=== PATIENT | male | born 1930 | race Caucasian/White ===

== ENCOUNTER 2018-09-14 20:58 | Inpatient (IN) ==
--- NOTE | 2018-09-14 21:09 | ED ---
HPI General Chief Complaint: Fall Stated Complaint: Fall Time Seen by Provider: 09/14/18 21:05 Source: patient Mode of arrival: EMS Limitations: no limitations History of Present Illness HPI Narrative: 87-year-old male with PMH of COPD, hyperlipidemia, depression, oxygen dependent presents the ED via EMS for evaluation of right hip pain. Patient states he was attempting to get out of bed, had pain in the right hip and fell to the ground. He denies hitting his head or loss of consciousness. He has not been able to ambulate since the accident. He endorses 8/10 pain with any motion, pain is relieved by rest. He states pain is currently 2/10. He denies taking any blood thinners. He denies headache, dizziness, chest pain , palpitations, shortness of breath, abdominal pain, nausea, vomiting. He states he last ate around 4 PM. Related Data Home Medications Medication Instructions Recorded Confirmed alprazolam 0.5 mg PO TID 09/14/18 09/14/18 aspirin 81 mg PO DAILY 09/14/18 09/14/18 atorvastatin 10 mg PO DAILY 09/14/18 09/14/18 docusate sodium 100 mg PO BID 09/14/18 09/14/18 finasteride 5 mg PO DAILY 09/14/18 09/14/18 ipratropium-albuterol 3 ml INHALATION BID 09/14/18 09/14/18 moxifloxacin [Vigamox] 1 drp OPHTHALMIC (EYE) TID 09/14/18 09/14/18 polysaccharide iron complex 150 mg PO DAILY 09/14/18 09/14/18 [Ferrex 150] sertraline 50 mg PO HS 09/14/18 09/14/18 tamsulosin 0.4 mg PO BID 09/14/18 09/14/18 Allergies Allergy/AdvReac Type Severity Reaction Status Date / Time No Known Allergies Allergy Verified 06/08/18 14:57 Review of Systems ROS: all other systems reviewed are negative [facility] Medical History Medical History COPD (chronic obstructive pulmonary disease) (Acute) Social History Social History Substance History: No History of Abuse Second Hand Smoke Exposure: No Smoking Status: Never smoker Tobacco Type: Cigarettes How Often Do You Have a Drink Containing Alcohol: Never Recent Travel in [facility] within the Last 8 Weeks: No Recent Out of Country Travel within the Last 8 Weeks: No Exam Narrative Exam Narrative: GENERAL: Well-nourished, well-developed, hard of hearing white male in no acute distress. SKIN: Focused skin assessment warm/dry. HEAD: Atraumatic. Normocephalic. EYES: Pupils equal and round. No scleral icterus. No injection or drainage. ENT: No nasal bleeding or discharge. Mucous membranes pink and moist. NECK: Trachea midline. No JVD. CARDIOVASCULAR: Regular rate and rhythm. No murmur appreciated. RESPIRATORY: No accessory muscle use. Clear to auscultation. Breath sounds equal bilaterally. GASTROINTESTINAL: Abdomen soft, non-tender, nondistended. Hepatic and splenic margins not palpable. MUSCULOSKELETAL: No obvious deformities. No clubbing. No cyanosis. No edema. FOCUSED RIGHT LOWER EXTREMITY EXAM: 2+ DP pulse. Patient is able to wiggle the toes, neurovascular intact distally. The leg is externally rotated and slightly shortened as compared to the contralateral leg. No tenderness to palpation of the anterior lateral hip. Pain elicited with attempted internal and external rotation. NEUROLOGICAL: Awake and alert. No obvious cranial nerve deficits. Motor grossly within normal limits. Normal speech. PSYCHIATRIC: Appropriate mood and affect; insight and judgment normal. Course Initial Documented Vital Signs Temperature 97.8 F 09/14/18 21:10 Pulse Rate 99 H 09/14/18 21:10 Respiratory Rate 18 09/14/18 21:10 Blood Pressure 192/84 H 09/14/18 21:10 Pulse Oximetry 96 09/14/18 21:10 Last Documented Vital Signs Temperature 97.8 F 09/14/18 21:10 Pulse Rate 99 H 09/14/18 21:10 Respiratory Rate 18 09/14/18 21:10 Blood Pressure 192/84 H 09/14/18 21:10 Pulse Oximetry 96 09/14/18 21:10 Medical Decision Making [facility] Narrative Medical decision making narrative: 87-year-old male with history of COPD, oxygen dependent presents the ED for evaluation of right hip pain. Patient states he was attempting to get out of bed, felt pain in the right hip and fell to the ground. Denies hitting his head or loss of consciousness. Does not take blood thinners. On exam the affected extremity is externally rotated and mildly foreshortened. He is neurovascularly intact distally. X-ray reveals intertrochanteric fracture. Preoperative lab work and radiological studies ordered and pending. I discussed the results of the workup with the patient as well as the recommendation for admission. He is agreeable. Orthopedic consult placed. I spoke with Dr. Green who agrees to accept the patient to the medicine service. Please see medicine and orthopedic notes for disposition. Medical Screen Exam Complete: Yes Emergency Medical Condition: Yes Differential Diagnosis Differential Diagnosis: Fall from standing versus hip fracture versus dislocation versus pelvic fracture versus other Imaging Data Radiologist's impression: Hip X-Ray 09/14/18 21:05 CONCLUSION: Acute minimally displaced intertrochanteric fracture of the right femur. Discharge Plan Discharge Disposition Patient Disposition: 30 Still Patient Physicians Team ED Provider: Melinda Todd ED Midlevel Provider: Rosalba Gu Primary Care Provider: UNKNOWN, Attending Provider: Marcio Green Other Providers: Yonatan Boyd Status ED Status: Admitted Patient
[2018-09-14] MEDS ORDERED: Morphine Inj 4 MG/ML Vial IV.PUSH ONE (21:42)
--- NOTE | 2018-09-14 21:43 | XR ---
EXAM DATE: 09/14/2018 9:39 PM EST AGE/SEX: 87 years / Male INDICATIONS: Right hip pain after fall. CLINICAL DATA: This is the patient's initial encounter. Patient reports that signs and symptoms have been present for 1 day and indicates a pain score of 10/10. MEDICAL/SURGICAL HISTORY: None. . Left hip ORIF. COMPARISON: No prior exams available for comparison. FINDINGS: There is a minimally displaced intertrochanteric fracture of the right femur. Bony pelvis is intact and has normal morphology. There is a healed intertrochanteric fracture of the left femur status post nail and basilio fixation. Ali gnment is near-anatomic. CONCLUSION: Acute minimally displaced intertrochanteric fracture of the right femur. Electronically signed by: Panfilo Jacome MD 09/14/2018 9:41 PM EST
[2018-09-14] MEDS ORDERED: Morphine Sulfate Inj 2 MG/ML Vial IV.PUSH ONE (21:44)
--- NOTE | 2018-09-14 22:08 | XR ---
EXAM DATE: 09/14/2018 10:01 PM EST AGE/SEX: 87 years / Male INDICATIONS: Evaluate for pneumonia, pneumothorax, or communicable disease. Pre op hip surgery. CLINICAL DATA: This is the patient's initial encounter. Patient reports that signs and symptoms have been present for 1 day and indicates a pain score of 0/10. MEDICAL/SURGICAL HISTORY: None. None. COMPARISON: [facility] [place], CHEST 1V SINGLE AP, 06/08/2018. . FINDINGS: Emphysema and chronic interstitial changes are again noted, generally similar to the prior study. No pleural effusion demonstrated. No pneumothorax. Heart size stable, upper limits of normal. Tortuous and atherosclerotic aorta again seen. CONCLUSION: Chronic emphysema and interstitial changes/scarring. No definite acute pneumonia. Electronically signed by: Panfilo Jacome MD 09/14/2018 10:07 PM EST
[2018-09-14] MEDS ORDERED: Bisacodyl 10 MG Supp RECTAL PRN (22:30)
[2018-09-14] MEDS: Sod Chloride 0.9% Inj 1,000 ML IV.CONT SCH (22:55)
[2018-09-14 23:05] LABS: Baso # (Auto) 0.1 th/mm3 (0.0-0.2); Baso % (Auto) 0.9 % (0.0-2.0); Eos % (Auto) 0.5 % (0.0-4.0); Hematocrit 32.9 % (39.0-51.0); Hemoglobin 10.8 gm/dL (13.0-17.0); Lymph # (Auto) 1.4 th/mm3 (1.0-4.8); Lymph % (Auto) 16.3 % (9.0-44.0); Mean Corpuscular HGB Conc 32.8 % (32.0-36.0); Mean Corpuscular Hemoglobin 32.4 pg (27.0-34.0); Mean Corpuscular Volume 98.5 fL (80.0-100.0); Mean Platelet Volume 8.8 fL (7.0-11.0); Mono # (Auto) 0.5 th/mm3 (0.0-0.9); Mono % (Auto) 5.3 % (0.0-8.0); Neut # (Auto) 6.7 th/mm3 (1.8-7.7); Platelet Count 112 th/mm3 (150-450); Red Blood Count 3.33 mil/mm3 (4.50-5.90); Red Cell Distribution Width 20.5 % (11.6-17.2); White Blood Count 8.6 th/mm3 (4.0-11.0)
[2018-09-14 23:14] LABS: Activated Partial Thrombo Time 25.2 sec (23.4-31.7); INR 1.1 Ratio
[2018-09-14 23:26] LABS: Albumin 3.1 g/dL (3.4-5.0); Anion Gap 4 meq/L (5-15); Aspartate Aminotransferase 13 U/L (15-37); Blood Urea Nitrogen 19 mg/dL (7-18); Calcium 8.2 mg/dL (8.5-10.1); Carbon Dioxide 30.8 meq/L (21.0-32.0); Chloride 102 meq/L (98-107); Glomerular Filtration Rate 87 mL/min (>89); Glucose,Random 139 mg/dL (74-106); Potassium 4.5 meq/L (3.5-5.1); Sodium 137 meq/L (136-145)
[2018-09-14 23:27] LABS: Alanine Aminotransferase 21 U/L (12-78)
[2018-09-14 23:29] LABS: Alkaline Phosphatase 106 U/L (45-117); Total Protein 6.5 g/dL (6.4-8.2)
[2018-09-14 23:35] LABS: Acanthocytes Occ; Ovalocytes 1+; Platelet Morphology Normal (Normal)
--- NOTE | 2018-09-15 05:47 | P.HPIM ---
History of Present Illness Primary Care Physician: UNKNOWN History of Present Illness: 87-year-old male with a history of COPD on oxygen, BPH, hyperlipidemia, chronic anemia, history of left hip fracture who presents the evening of 09/14 with with acute right hip fracture seen on x-ray. Patient says that he stood up from his bed, experienced severe pain in his right hip and fell to the floor. Denies any head trauma or loss of consciousness. He subsequently has severe constant sharp nonradiating pain right hip worse with movement. Says he otherwise is feeling all right. Denies any chest pain or change in shortness of breath from baseline. Patient denies any history of chest pain with exertion. Inpatient Certification: I certify that the inpatient services were ordered in accordance with Medicare regulations governing the order. This includes certification that hospital inpatient services are reasonable and necessary and in the case of services not specified as inpatient-only under 42 CFR 419.22(n), that they are appropriately provided as inpatient services in accordance to with the 2-midnight benchmark under 43 CFR 412.3(e) Review of Systems All other systems reviewed negative except as stated in HPI PMFSH - History History Provided By: Patient - Medical History Medical History: Medical History (Last Updated 09/15/18 @ 05:43 by Marcio Green MD) COPD (chronic obstructive pulmonary disease) Fracture of left hip requiring operative repair - Family History Family History: Family History (Last Updated 09/15/18 @ 05:43 by Marcio Green MD) Father Stroke Mother Stroke - Tobacco History Second Hand Smoke Exposure: No Smoking Status: Never smoker Tobacco Type: Cigarettes - Alcohol History How Often Do You Have a Drink Containing Alcohol: Never - Substance Use History Substance History: No History of Abuse - Travel History Recent Travel in the [place] Within the Last 8 Weeks: No Recent Travel Out of the Country Within the Last 8 Weeks: No - Immunization History Tetanus Immunization: Unsure Hx Influenza Vaccine This Season: No Medications and Allergies Active Medications: Active Medications Al Hydroxide/Mg Hydroxide (Milk Of Gomez Bal[place]) 30 ml PO Q12H PRN PRN Reason: Mild Constipation Albuterol (Duoneb Neb (Jayme)) 1 ampul INH BID NEB JAYME Alprazolam (Xanax) 0.5 mg PO TID JAYME Aspirin (Aspirin Chew) 81 mg PO DAILY JAYME Atorvastatin Calcium (Lipitor) 10 mg PO DAILY JAYME Bisacodyl (Dulcolax Supp) 10 mg RECTAL DAILY PRN PRN Reason: SEVERE CONSITIPATION Docusate Sodium (Colace) 100 mg PO BID [facility] Finasteride (Proscar) 5 mg PO DAILY [facility] Sodium Chloride (Ns Inj) 1,000 mls @ 45 mls/hr IV.CONT .[id number] [facility] Last Admin: 09/14/18 22:55 Dose: 45 mls/hr Lactulose (Lactulose Liq) 30 ml PO DAILY PRN PRN Reason: SEVERE CONSITIPATION Moxifloxacin HCl (Vigamox 0.5% Opth Drops) 1 drop EACH EYE TID [facility] Sennosides (Senokot) 17.2 mg PO Q12H PRN PRN Reason: Moderate Constipation Sertraline HCl (Zoloft) 50 mg PO HS [facility] Sodium Chloride (Ns Flush) 2 ml IV.FLUSH UNSCH PRN PRN Reason: FLUSH AFTER USING IV ACCESS Tamsulosin HCl (Flomax) 0.4 mg PO BID [facility] Allergies Allergy/AdvReac Type Severity Reaction Status Date / Time No Known Allergies Allergy Verified 06/08/18 14:57 Home Medications Medication Instructions Recorded Confirmed Type alprazolam 0.5 mg PO TID 09/14/18 09/14/18 History aspirin 81 mg PO DAILY 09/14/18 09/14/18 History atorvastatin 10 mg PO DAILY 09/14/18 09/14/18 History docusate sodium 100 mg PO BID 09/14/18 09/14/18 History finasteride 5 mg PO DAILY 09/14/18 09/14/18 History ipratropium-albuterol 3 ml INHALATION BID 09/14/18 09/14/18 History moxifloxacin [Vigamox] 1 drp OPHTHALMIC (EYE) TID 09/14/18 09/14/18 History polysaccharide iron complex 150 mg PO DAILY 09/14/18 09/14/18 History [Ferrex 150] sertraline 50 mg PO HS 09/14/18 09/14/18 History tamsulosin 0.4 mg PO BID 09/14/18 09/14/18 History Exam Vital signs: Vital Signs 09/14/18 21:10 Temperature 97.8 F Pulse Rate 99 H Respiratory Rate 18 Blood Pressure 192/84 H Pulse Oximetry 96 Intake & Output 09/14/18 09/14/1809/15/18 06:59 18:59 06:59 Weight 77.111 kg Other: Date of Last Bowel Movement 09/14/18 Weight On Admission 77.1 kg Narrative: GENERAL: Patient sitting up in bed. Appears comfortable. SKIN: Warm and dry. HEAD: Atraumatic. Normocephalic. EYES: Pupils equal and round. No scleral icterus. No injection or drainage. ENT: No nasal bleeding or discharge. Mucous membranes pink and moist. NECK: Trachea midline. No JVD. CARDIOVASCULAR: Regular rate and rhythm. RESPIRATORY: No accessory muscle use. Clear to auscultation. Breath sounds equal bilaterally. On 2 L oxygen nasal cannula. GASTROINTESTINAL: Abdomen soft, non-tender, nondistended. Hepatic and splenic margins not palpable. MUSCULOSKELETAL: Extremities without clubbing, cyanosis, or edema. No obvious deformities. Extreme pain with movement of right hip NEUROLOGICAL: Awake and alert. No obvious cranial nerve deficits. Motor grossly within normal limits. Five out of 5 muscle strength in the arms..Normal speech. PSYCHIATRIC: Appropriate mood and affect; insight and judgment normal. Results - Labs CBC & Chem 7: 09/14/18 22:55 09/14/18 22:55 Labs: Short CBC 09/14/18 Range/Units 22:55 WBC 8.6 (4.0-11.0) th/mm3 Hgb 10.8 L (13.0-17.0) gm/dL Hct 32.9 L (39.0-51.0) % Plt Count 112 L (150-450) th/mm3 BMP 09/14/18 22:55 Sodium 137 Potassium 4.5 Chloride 102 Carbon Dioxide 30.8 BUN 19 H Creatinine 0.83 Calcium 8.2 L Liver Function 09/14/18 Range/Units 22:55 Total Bilirubin 0.4 (0.2-1.0) mg/dL AST 13 L (15-37) U/L ALT 21 (12-78) U/L Alkaline Phosphatase 106 (45-117) U/L Albumin 3.1 L (3.4-5.0) g/dL - Imaging Impressions Hip X-Ray 09/14/18 21:05 CONCLUSION: Acute minimally displaced intertrochanteric fracture of the right femur. Chest X-Ray 09/14/18 21:42 CONCLUSION: Chronic emphysema and interstitial changes/scarring. No definite acute pneumonia. Caprini VTE Risk Assessment Caprini VTE Risk Assessment: Moderate/High Risk (score >= 2) Caprini Risk Assessment Model: Point Value = 1 Point Value = 2 Point Value = 3 Point Value = 5 Age 41-60 Minor surgery BMI > 25 kg/m2 Swollen legs Varicose veins or History of unexplained or recurrent spontaneous Oral contraceptives or hormone replacement Sepsis (< 1 month) Serious lung disease, including pneumonia (< 1 month) Abnormal pulmonary function Acute myocardial infarction Congestive heart failure (< 1 month) History of inflammatory bowel disease Medical patient at bed rest Age 61-74 Arthroscopic surgery Major open surgery (> 45 min) Laparoscopic surgery (> 45 min) Malignancy Confined to bed (> 72 hours) Immobilizing plaster cast Central venous access Age >= 75 History of VTE Family history of VTE Factor V Leiden Prothrombin [id number] Lupus anticoagulant Anticardiolipin antibodies Elevated serum homocysteine Heparin-induced thrombocytopenia Other congenital or acquired thrombophilia Stroke (< 1 month) Elective arthroplasty Hip, pelvis, or leg fracture Acute spinal cord injury (< 1 month) Prophylaxis Regimen: Total Risk Factor Score Risk Level Prophylaxis Regimen 0-1 Low Early ambulation 2 Moderate Order ONE of the following: *Sequential Compression Device (SCD) *Heparin 5000 units SQ BID 3-4 Higher Order ONE of the following medications: *Heparin 5000 units SQ TID *Enoxaparin/Lovenox 40 mg SQ daily (WT < 150 kg, CrCl > 30 mL/min) *Enoxaparin/Lovenox 30 mg SQ daily (WT < 150 kg, CrCl > 10-29 mL/min) *Enoxaparin/Lovenox 30 mg SQ BID (WT < 150 kg, CrCl > 30 mL/min) AND/OR *Sequential Compression Device (SCD) 5 or more Highest Order ONE of the following medications: *Heparin 5000 units SQ TID (Preferred with Epidurals) *Enoxaparin/Lovenox 40 mg SQ daily (WT < 150 kg, CrCl > 30 mL/min) *Enoxaparin/Lovenox 30 mg SQ daily (WT < 150 kg, CrCl > 10-29 mL/min) *Enoxaparin/Lovenox 30 mg SQ BID (WT < 150 kg, CrCl > 30 mL/min) AND *Sequential Compression Device (SCD) Assessment and Plan - Plan //Acute right hip fracture. Confirmed on imaging. Orthopedic consulted. N.p.o. for procedure. //COPD. Chronic. Continue oxygen via nasal cannula. Continue nebulizations. Monitor. //BPH. Chronic. Continue home medication Hyperlipidemia. Chronic. Continue home medication. Discussed Condition With: Patient, nurse, ED physician. H&P: Quality - VTE Deep Vein Thrombosis/Pulmonary Embolism Present on Admission: No
[2018-09-15] MEDS ORDERED: Chlorhexidine Gluconate 2% 1 Pack (2 Cloths) TOPICAL ONE (06:19)
[2018-09-15] MEDS ORDERED: Sodium Chlor 0.9% Inj 500 ML IV.SIG SCH (07:00)
--- NOTE | 2018-09-15 07:53 | ECG ---
Date Performed: 09/15/2018 Time Performed: 06:54:37 PTAGE: 87 years EKG: Baseline artifact present Either atrial fibrillation with controlled response or Sinus rhyt hm with premature atrial contractions. ABNORMAL RHYTHM ECG NO PREVIOUS TRACING DOCTOR: Kaden Salinas Interpretating Date/Time 09/15/2018 07:51:56
[2018-09-15] MEDS: Finasteride 5 MG Tablet PO SCH (08:03)
[2018-09-15] MEDS: ALPRAZolam 0.25 MG Tablet PO SCH ×3 (08:04→17:11)
[2018-09-15] MEDS ORDERED: Morphine Sulfate Inj 2 MG/ML Vial IV.PUSH PRN (09:06)
--- NOTE | 2018-09-15 09:08 | P.PNOP ---
Subjective Interval history: Slip and fall at assisted living home with complaints to right hip pain. No other orthopedic complaints Physical Exam Vital signs: Vital Signs 09/14/18 21:10 09/15/18 04:00 09/15/18 08:00 Temperature 97.8 F 97.8 F 97.2 F L Pulse Rate 99 H 92 H 80 Respiratory Rate 18 17 19 Blood Pressure 192/84 H 161/82 H Pulse Oximetry 96 96 95 09/15/18 08:54 Temperature Pulse Rate 91 H Respiratory Rate 18 Blood Pressure Pulse Oximetry 96 Intake & Output 09/14/18 09/15/18 09/15/18 18:59 06:59 18:59 Output Total 1125 / 1125 Balance -1125 / -1125 Weight 75.9 kg Output: Urine Amount (Catheter) 1124 Indwelling Urethral Catheter 1124 Other: Date of Last Bowel Movement 09/14/18 Weight On Admission 77.1 kg Narrative: Bilateral upper extremities: Full range of motion neurovascularly intact Left lower extremity: Full range of motion and neurovascularly intact Right lower extremity: Pain to palpation of hip. Skin is intact. Moderate bruising. No pain with knee or ankle passive range of motion. He has intact sensation distally with good capillary refills. He has active dorsiflexion and plantar flexion of foot. Intact distal pulses and good capillary refill - Urinary Catheter Management Indwelling Urethral Catheter Cath placed during this visit: yes Reason for continuing: Other continuation reason Insertion date: 09/14/18 Insertion time: 23:05 Results - Labs CBC & Chem 7: 09/14/18 22:55 09/14/18 22:55 Laboratory Results - last 24 hr 09/14/18 09/14/18 09/14/18 22:55 22:55 22:55 WBC 8.6 RBC 3.33 L Hgb 10.8 L Hct 32.9 L MCV 98.5 MCH 32.4 MCHC 32.8 RDW 20.5 H Plt Count 112 L MPV 8.8 Prelim Diff (Auto) Slide review pending Neut % (Auto) 77.0 H Lymph % (Auto) 16.3 [place] % (Auto) 5.3 Eos % (Auto) 0.5 Baso % (Auto) 0.9 Neut # (Auto) 6.7 Lymph # (Auto) 1.4 [place] # (Auto) 0.5 Eos # (Auto) 0.0 Baso # (Auto) 0.1 WBC Differential . Diff Scan Auto diff confirmed Differential Comment . Platelet Estimate Low L Platelet Morphology Normal Ovalocytes 1+ H Acanthocytes (Spur) Occ H Keratocytes Occ H PT 11.0 INR 1.1 APTT 25.2 Sodium 137 Potassium 4.5 Chloride 102 Carbon Dioxide 30.8 Anion Gap 4 L BUN 19 H Creatinine 0.83 Estimated GFR 87 L Random Glucose 139 H Calcium 8.2 L Total Bilirubin 0.4 AST 13 L ALT 21 Alkaline Phosphatase 106 Total Protein 6.5 Albumin 3.1 L Blood Type Blood Type Recheck Antibody Screen Antibody Identification MTS Gel Crossmatch Bld Prod Order Comment 09/14/18 09/14/18 23:00 23:00 WBC RBC Hgb Hct MCV MCH MCHC RDW Plt Count MPV Prelim Diff (Auto) Neut % (Auto) Lymph % (Auto) [place] % (Auto) Eos % (Auto) Baso % (Auto) Neut # (Auto) Lymph # (Auto) [place] # (Auto) Eos # (Auto) Baso # (Auto) WBC Differential Diff Scan Differential Comment Platelet Estimate Platelet Morphology Ovalocytes Acanthocytes (Spur) Keratocytes PT INR APTT Sodium Potassium Chloride Carbon Dioxide Anion Gap BUN Creatinine Estimated GFR Random Glucose Calcium Total Bilirubin AST ALT Alkaline Phosphatase Total Protein Albumin Blood Type O Positive Blood Type Recheck Required Antibody Screen Positive H Antibody Identification Non-Specific Agglutinin MTS Gel Crossmatch See Detail Bld Prod Order Comment - Imaging Impressions Hip X-Ray 09/14/18 21:05 CONCLUSION: Acute minimally displaced intertrochanteric fracture of the right femur. Chest X-Ray 09/14/18 21:42 CONCLUSION: Chronic emphysema and interstitial changes/scarring. No definite acute pneumonia. Assessment and Plan - Assessment and Plan Right intertrochanteric femur fracture N.p.o. Due to instability of fracture surgery is necessary for fixation. We will plan on surgery today for intramedullary basilio fixation of the right intertrochanteric femur fracture Sign consents as written
--- NOTE | 2018-09-15 09:11 | P.PN ---
Subjective Interval history: This is a pleasant 87 y/o male with COPD on Oxygen, BPH, Hyperlipidemia, Chronic anemia, History of left hip fracture who was brought in to Emergency room, status post fall with secondary Right hip fracture , has history of left hip fracture, scheduled now for right Hip arthroplasty. 09/15: Stable no nausea,vomit or diarrhea, asking for pain medicine to continue Morphine, at this time will go for surgery. Physical Exam Vital signs: Vital Signs 09/14/18 21:10 09/15/18 04:00 09/15/18 08:00 Temperature 97.8 F 97.8 F 97.2 F L Pulse Rate 99 H 92 H 80 Respiratory Rate 18 17 19 Blood Pressure 192/84 H 161/82 H Pulse Oximetry 96 96 95 09/15/18 08:54 Temperature Pulse Rate 91 H Respiratory Rate 18 Blood Pressure Pulse Oximetry 96 Intake & Output 09/14/18 09/15/18 09/15/18 18:59 06:59 18:59 Output Total 1125 / 1125 Balance -1125 / -1125 Weight 75.9 kg Output: Urine Amount (Catheter) 1125 / 1125 Indwelling Urethral Catheter 1125 / 1125 Other: Date of Last Bowel Movement 09/14/18 Weight On Admission 77.1 kg Narrative: GENERAL: Patient sitting up in bed. Appears comfortable. SKIN: Warm and dry. HEAD: Atraumatic. Normocephalic. EYES: Pupils equal and round. No scleral icterus. No injection or drainage. ENT: No nasal bleeding or discharge. Mucous membranes pink and moist. NECK: Trachea midline. No JVD. CARDIOVASCULAR: Regular rate and rhythm. RESPIRATORY: No accessory muscle use. Clear to auscultation. Breath sounds equal bilaterally. On 2 L oxygen nasal cannula. GASTROINTESTINAL: Abdomen soft, non-tender, nondistended. Hepatic and splenic margins not palpable. MUSCULOSKELETAL: Extremities without clubbing, cyanosis, or edema. No obvious deformities. Extreme pain with movement of right hip NEUROLOGICAL: Awake and alert. No obvious cranial nerve deficits. Motor grossly within normal limits. Five out of 5 muscle strength in the arms..Normal speech. PSYCHIATRIC: Appropriate mood and affect; insight and judgment normal. - Urinary Catheter Management Indwelling Urethral Catheter Cath placed during this visit: yes Reason for continuing: Other continuation reason Insertion date: 09/14/18 Insertion time: 23:05 Results - Labs CBC & Chem 7: 09/14/18 22:55 09/14/18 22:55 Laboratory Results - last 24 hr 09/14/18 09/14/18 09/14/18 22:55 22:55 22:55 WBC 8.6 RBC 3.33 L Hgb 10.8 L Hct 32.9 L MCV 98.5 MCH 32.4 MCHC 32.8 RDW 20.5 H Plt Count 112 L MPV 8.8 Prelim Diff (Auto) Slide review pending Neut % (Auto) 77.0 H Lymph % (Auto) 16.3 [place] % (Auto) 5.3 Eos % (Auto) 0.5 Baso % (Auto) 0.9 Neut # (Auto) 6.7 Lymph # (Auto) 1.4 [place] # (Auto) 0.5 Eos # (Auto) 0.0 Baso # (Auto) 0.1 WBC Differential . Diff Scan Auto diff confirmed Differential Comment . Platelet Estimate Low L Platelet Morphology Normal Ovalocytes 1+ H Acanthocytes (Spur) Occ H Keratocytes Occ H PT 11.0 INR 1.1 APTT 25.2 Sodium 137 Potassium 4.5 Chloride 102 Carbon Dioxide 30.8 Anion Gap 4 L BUN 19 H Creatinine 0.83 Estimated GFR 87 L Random Glucose 139 H Calcium 8.2 L Total Bilirubin 0.4 AST 13 L ALT 21 Alkaline Phosphatase 106 Total Protein 6.5 Albumin 3.1 L Blood Type Blood Type Recheck Antibody Screen Antibody Identification MTS Gel Crossmatch Bld Prod Order Comment 09/14/18 09/14/18 23:00 23:00 WBC RBC Hgb Hct MCV MCH MCHC RDW Plt Count MPV Prelim Diff (Auto) Neut % (Auto) Lymph % (Auto) [place] % (Auto) Eos % (Auto) Baso % (Auto) Neut # (Auto) Lymph # (Auto) [place] # (Auto) Eos # (Auto) Baso # (Auto) WBC Differential Diff Scan Differential Comment Platelet Estimate Platelet Morphology Ovalocytes Acanthocytes (Spur) Keratocytes PT INR APTT Sodium Potassium Chloride Carbon Dioxide Anion Gap BUN Creatinine Estimated GFR Random Glucose Calcium Total Bilirubin AST ALT Alkaline Phosphatase Total Protein Albumin Blood Type O Positive Blood Type Recheck Required Antibody Screen Positive H Antibody Identification Non-Specific Agglutinin MTS Gel Crossmatch See Detail Bld Prod Order Comment - Imaging Impressions Hip X-Ray 09/14/18 21:05 CONCLUSION: Acute minimally displaced intertrochanteric fracture of the right femur. Chest X-Ray 09/14/18 21:42 CONCLUSION: Chronic emphysema and interstitial changes/scarring. No definite acute pneumonia. - Procedures None Assessment and Plan - Plan //Acute right hip fracture. With Diagnosis of Right intertrochanteric femur fracture, seen by Orthopedic usability specialist and recommended due to instability of the fracture is necessary surgical management for fixation, will need intramedullary basilio fixation //COPD. Chronic. Continue oxygen via nasal cannula. Continue nebulizations. Monitor. //BPH. Chronic. Continue home medication //Hyperlipidemia. Chronic. Continue home medication. DVT prophylaxis as per Orthopedic Surgery. Code Status: Full code. Discussed Condition With: Patient and Nurse Miss Ham Discharge Planning: Once cleared by orthopedic surgery.
[2018-09-15] MEDS: Moxifloxacin 0.5% Opth Drops 3 ML Bottle EACH EYE SCH ×3 (10:04→17:23)
[2018-09-15] MEDS: Docusate Sodium 100 MG Capsule PO SCH ×2 (10:04→21:00)
[2018-09-15] MEDS ORDERED: ceFAZolin 2 GM Premix Inj 2 GM/50 ML PIGGYBACK IV.SIG ONE (10:33)
[2018-09-15] MEDS ORDERED: Bupivacaine/Epinephrine 0.5% Inj 50 ML Vial ONE (10:33)
[2018-09-15] MEDS ORDERED: Lidocaine PF 1% Inj 5 ML Syringe OTHER ONE (11:03)
[2018-09-15] MEDS ORDERED: Post-op Orders (for Pharmacy) OTHER STA (11:53)
--- NOTE | 2018-09-15 12:03 | P.OP ---
- Preoperative Diagnosis (1) Closed intertrochanteric fracture of right femur Date of procedure: 09/15/18 Procedure: Right hip reduction and intra medullary basilio fixation Anesthesia: GETPernell Surgeon: Yonatan Boyd MD Cover Cutter Machine: SHAYAN Hanna PA-C The surgical procedure was assisted by my physician assistant professor of spanish. My P.A. presence was necessary throughout this case for the manipulation and positioning of the surgical extremity. My P.A. was assisting me throughout the duration of this procedure. The skill set of a physician assistant professor of spanish was medically necessary to complete this procedure. During the surgical case the surgical assistant certified was working at the back table and the physician assistant professor of spanish was directly assisting me. Operation and Findings: Implants used: Synthes 12mm intermediate TFNA nail Plan of activity: WBAT Patient was seen and evaluated preoperatively. The patient has significant hip pain from intertrochanteric hip fracture. The risk and benefits of surgery were discussed in depth with the patient to include bleeding infection nonunion malunion and need for hip replacement painful hardware as well as medical competitions including but not stroke heart attack and . Informed consent was obtained. Operative site was marked. Patient was brought to the operating room and placed on fracture table. IV sedation was administered by anesthesiologist. Timeout procedure was performed. Hip and leg were prepped with alcohol followed by DuraPrep and draped in the usual sterile fashion. IV antibiotics were given prior to incision. Procedure began with reduction of fracture. Traction was applied. The leg was manipulated to achieve reduction. Excellent reduction was achieved. Fluoroscopy was used to confirm reduction. A three inch incision was made proximal to the trochanter. Subcutaneous tissue was dissected bluntly. Guidepin was placed at the tip of the trochanter and advanced into the femoral canal. Fluoroscopy confirmed appropriate guidepin placement. A opening reamer was placed over the guidepin. The nail was attached to the insertion handle. Nail was now placed through the tip of the trochanter into the femoral canal. Fluoroscopy confirmed appropriate nail placement. A second incision was made over the lateral thigh. Cannulas were placed through the insertion handle down to the femur. Guidepin was now placed through the femoral nail into the center of the femoral head. Fluoroscopy confirmed appropriate guidepin placement. Screw length was measured. Cannulated drill was placed over the guidepin. Appropriate length lag screw was now placed. Traction was released and compression was applied. The set screw was now tightened in dynamic mode. Using the insertion handle as a guide a distal interlocking screw was drilled and placed. Final fluoroscopy revealed well aligned fracture with well-placed hardware. Incision was closed with 3-0 Vicryl and samson. Sterile dressings were applied. Patient was awakened and transferred to recovery room.
--- NOTE | 2018-09-15 12:07 | P.CONOP ---
[facility] Orthopedics Consult Note - [facility] Consult date: 09/15/18 Chief complaint: Right Hip Fracture Narrative: Reg is an 87-year-old male. He has a history of COPD, oxygen dependence, BPH , high cholesterol, and anemia. He states that he stood up from bed. He fell to the floor. He had immediate right hip pain. He was unable to stand or ambulate. He denies dizziness, syncope, or loss of consciousness. He appeared to the emergency room where x-rays revealed right hip fracture. Currently his only complaint is his right hip. Pain is severe and intense with movement. Pain is improved with rest. Review of Systems Patient denies fevers, chills, weight loss, headache, visual changes, hearing loss, chest pain, palpitations, shortness of breath, nausea, vomiting, no urinary changes, diarrhea, bowel changes, neck pain, back pain, skin rashes, weakness of extremities, easy bleeding, enlarged lymph nodes, numbness of extremities, anxiety, or depression. He complains of right hip pain Patient's social history, past medical history, and family history were reviewed on chart and with patient. [facility] - History History Provided By: Patient - Medical History Medical History: Medical History (Last Reviewed 09/15/18 @ 12:05 by Yonatan Boyd MD) COPD (chronic obstructive pulmonary disease) Fracture of left hip requiring operative repair - Family History Family History: Family History (Last Reviewed 09/15/18 @ 12:05 by Yonatan Boyd MD) Father Stroke Mother Stroke - Social History I have reviewed the patient's Social History: Yes - Tobacco History Second Hand Smoke Exposure: No Smoking Status: Never smoker Tobacco Type: Cigarettes - Alcohol History How Often Do You Have a Drink Containing Alcohol: Never - Substance Use History Substance History: No History of Abuse - Travel History Recent Travel in the [place] Within the Last 8 Weeks: No Recent Travel Out of the Country Within the Last 8 Weeks: No - Immunization History Tetanus Immunization: Unsure Hx Influenza Vaccine This Season: No Medications and Allergies Active Medications: Active Medications Hydrocodone Bitart/Acetaminophen ([place] 7.5/325) 1 tab PO Q3H PRN PRN Reason: Pain Scale 3-10 Al Hydroxide/Mg Hydroxide (Milk Of Gomez Liq) 30 ml PO Q12H PRN PRN Reason: Mild Constipation Albuterol (Duoneb Neb (Jayme)) 1 ampul INH BID NEB [facility] Last Admin: 09/15/18 08:54 Dose: 1 ampul Alprazolam (Xanax) 0.5 mg PO TID [facility] Last Admin: 09/15/18 08:04 Dose: 0.5 mg Aspirin (Aspirin Chew) 81 mg PO DAILY [facility] Last Admin: 09/15/18 08:02 Dose: Not Given Atorvastatin Calcium (Lipitor) 10 mg PO DAILY [facility] Last Admin: 09/15/18 08:03 Dose: 10 mg Bisacodyl (Dulcolax Supp) 10 mg RECTAL DAILY PRN PRN Reason: SEVERE CONSITIPATION Calcium/Vitamin D (Oscal With D 250/125 Mg) 1 tab PO TID [facility] Diphenhydramine HCl (Benadryl) 25 mg PO Q6H PRN PRN Reason: ITCHING Docusate Sodium (Colace) 100 mg PO BID [facility] Last Admin: 09/15/18 10:04 Dose: Not Given Enoxaparin Sodium (Lovenox Inj) 30 mg SQ Q24H [facility] Ergocalciferol (Vitamin D2) 50,000 unit PO ONCE ONE Stop: 09/15/18 11:54 Finasteride (Proscar) 5 mg PO DAILY [facility] Last Admin: 09/15/18 08:03 Dose: 5 mg Sodium Chloride (Ns Inj) 1,000 mls @ 45 mls/hr IV.CONT .[id number] [facility] Last Admin: 09/14/18 22:55 Dose: 45 mls/hr Lactated Ringer's (Lr 1000 Ml Inj) 1,000 mls @ 30 mls/hr IV.SIG .Q24H [facility] Stop: 09/16/18 06:29 Last Infusion: 09/15/18 11:56 Dose: 30 mls/hr Cefazolin Sodium 1,000 mg/ (Sodium Chloride) 100 mls @ 200 mls/hr IV.SIG Q8H [facility] Stop: 09/16/18 04:29 Lactulose (Lactulose Liq) 30 ml PO DAILY PRN PRN Reason: SEVERE CONSITIPATION Miscellaneous Information (Misc Post-Op Orders (For Pharmacy)) 0 each OTHER STAT STA Stop: 09/15/18 11:54 Morphine Sulfate (Morphine Inj) 2 mg IV.PUSH Q3H PRN PRN Reason: PAIN SCALE 6 TO 10 Moxifloxacin HCl (Vigamox 0.5% Opth Drops) 1 drop EACH EYE TID [facility] Last Admin: 09/15/18 10:04 Dose: Not Given Ondansetron HCl (Zofran Inj) 4 mg IV.PUSH Q6H PRN PRN Reason: NAUSEA Sennosides (Senokot) 17.2 mg PO Q12H PRN PRN Reason: Moderate Constipation Sertraline HCl (Zoloft) 50 mg PO HS [facility] Sodium Chloride (Ns Flush) 2 ml IV.FLUSH UNSCH PRN PRN Reason: FLUSH AFTER USING IV ACCESS Tamsulosin HCl (Flomax) 0.4 mg PO BID [facility] Last Admin: 09/15/18 08:03 Dose: 0.4 mg Vitamin D (Vitamin D3) 5,000 unit PO DAILY [facility] Allergies Allergy/AdvReac Type Severity Reaction Status Date / Time No Known Allergies Allergy Verified 06/08/18 14:57 Home Medications Medication Instructions Recorded Confirmed Type alprazolam 0.5 mg PO TID 09/14/18 09/14/18 History aspirin 81 mg PO DAILY 09/14/18 09/14/18 History atorvastatin 10 mg PO DAILY 09/14/18 09/14/18 History docusate sodium 100 mg PO BID 09/14/18 09/14/18 History finasteride 5 mg PO DAILY 09/14/18 09/14/18 History ipratropium-albuterol 3 ml INHALATION BID 09/14/18 09/14/18 History moxifloxacin [Vigamox] 1 drp OPHTHALMIC (EYE) TID 09/14/18 09/14/18 History polysaccharide iron complex 150 mg PO DAILY 09/14/18 09/14/18 History [Ferrex 150] sertraline 50 mg PO HS 09/14/18 09/14/18 History tamsulosin 0.4 mg PO BID 09/14/18 09/14/18 History Exam Vital signs: Vital Signs 09/14/18 21:10 09/15/18 02:30 09/15/18 04:00 Temperature 97.8 F 97.8 F Pulse Rate 99 H 92 H Respiratory Rate 18 17 Blood Pressure 192/84 H 148/78 H Pulse Oximetry 96 96 09/15/18 08:00 09/15/18 08:54 09/15/18 09:55 Temperature 97.2 F L Pulse Rate 80 91 H Respiratory Rate 19 18 Blood Pressure 161/82 H Pulse Oximetry 95 96 95 Intake & Output 09/14/18 09/15/18 09/15/18 18:59 06:59 18:59 Intake Total 150 / 150 Output Total 1125 / 1125 50 / 50 Balance -1125 / -1125 100 / 100 Weight 75.9 kg Intake: IV 150 / 150 LR 1000 mL Inj 1,000 ML @ 30 100 / 100 mls/hr IV.SIG .Q24H [facility] Rx#: [id number] Ancef 2 GM Premix Inj 2 gm In 50 / 50 50 ml @ 0 mls/hr IV.SIG .STK- MED ONE Rx#:[id number] Output: Estimated Blood Loss 50 / 50 Urine Amount (Catheter) 1124 Indwelling Urethral Catheter 1124 Other: Date of Last Bowel Movement 09/14/18 Weight On Admission 77.1 kg Narrative: Reg is an 87-year-old male. General: Awake and alert. No acute distress. Appears well-developed well- nourished Head: Normocephalic, atraumatic pupils are equal Neck: Soft, nontender, trachea midline Abdomen: Soft, nondistended Examination of right arm reveals no pain or deformity with shoulder, elbow, or wrist motion. Skin is intact. Radial pulse is palpable. Normal capillary refill in fingers. Sensation is intact in radial, ulnar, and median nerve distributions. Medical Data Analyst strength is +5. No lymphadenopathy noted. Examination of left arm reveals no pain or deformity with shoulder, elbow, or wrist motion. Skin is intact. Radial pulse is palpable. Normal capillary refill in fingers. Sensation is intact in radial, ulnar, and median nerve distributions. Medical Data Analyst strength is +5. No lymphadenopathy noted. Examination of left lower extremity reveals no pain or deformity with hip, knee , or ankle motion. Skin is intact. Sensation is intact in left foot. Dorsalis pedis pulse is palpable. Normal capillary refill and feet. Thigh and calf compartments are soft. No lymphadenopathy noted. +5 strength of ankle dorsiflexion and plantarflexion. Examination of right lower extremity pain with any hip motion. He has no tenderness around his knee, tibia, or ankle.. Skin is intact. Sensation is intact in right foot. Dorsalis pedis pulse is palpable. Normal capillary refill and feet. Thigh and calf compartments are soft. No lymphadenopathy noted. +5 strength of ankle dorsiflexion and plantarflexion. Results - Labs Result Diagrams: 09/14/18 22:55 09/14/18 22:55 Labs: Laboratory Results - last 24 hr 09/14/18 09/14/18 09/14/18 22:55 22:55 22:55 WBC 8.6 RBC 3.33 L Hgb 10.8 L Hct 32.9 L MCV 98.5 MCH 32.4 MCHC 32.8 RDW 20.5 H Plt Count 112 L MPV 8.8 Prelim Diff (Auto) Slide review pending Neut % (Auto) 77.0 H Lymph % (Auto) 16.3 [place] % (Auto) 5.3 Eos % (Auto) 0.5 Baso % (Auto) 0.9 Neut # (Auto) 6.7 Lymph # (Auto) 1.4 [place] # (Auto) 0.5 Eos # (Auto) 0.0 Baso # (Auto) 0.1 WBC Differential . Diff Scan Auto diff confirmed Differential Comment . Platelet Estimate Low L Platelet Morphology Normal Ovalocytes 1+ H Acanthocytes (Spur) Occ H Keratocytes Occ H PT 11.0 INR 1.1 APTT 25.2 Sodium 137 Potassium 4.5 Chloride 102 Carbon Dioxide 30.8 Anion Gap 4 L BUN 19 H Creatinine 0.83 Estimated GFR 87 L Random Glucose 139 H Calcium 8.2 L Total Bilirubin 0.4 AST 13 L ALT 21 Alkaline Phosphatase 106 Total Protein 6.5 Albumin 3.1 L Blood Type Blood Type Recheck Antibody Screen Antibody Identification MTS Gel Crossmatch Bld Prod Order Comment 09/14/18 09/14/18 23:00 23:00 WBC RBC Hgb Hct MCV MCH MCHC RDW Plt Count MPV Prelim Diff (Auto) Neut % (Auto) Lymph % (Auto) [place] % (Auto) Eos % (Auto) Baso % (Auto) Neut # (Auto) Lymph # (Auto) [place] # (Auto) Eos # (Auto) Baso # (Auto) WBC Differential Diff Scan Differential Comment Platelet Estimate Platelet Morphology Ovalocytes Acanthocytes (Spur) Keratocytes PT INR APTT Sodium Potassium Chloride Carbon Dioxide Anion Gap BUN Creatinine Estimated GFR Random Glucose Calcium Total Bilirubin AST ALT Alkaline Phosphatase Total Protein Albumin Blood Type O Positive Blood Type Recheck Required Antibody Screen Positive H Antibody Identification Non-Specific Agglutinin MTS Gel Crossmatch See Detail Bld Prod Order Comment - Diagnostic results Imaging: Impressions Hip X-Ray 09/14/18 21:05 CONCLUSION: Acute minimally displaced intertrochanteric fracture of the right femur. Chest X-Ray 09/14/18 21:42 CONCLUSION: Chronic emphysema and interstitial changes/scarring. No definite acute pneumonia. Hip x-ray: report reviewed, image reviewed Assessment and Plan - Assessment and Plan Reg had a fall resulting in right hip intertrochanteric fracture. Treatment options were discussed with patient. At this point I would recommend reduction and intramedullary nail fixation of right hip. The risk and benefits of surgery were discussed in depth with patient. All questions were answered. The risk and benefits of surgery were discussed in depth with patient. The risk of surgery include bleeding, infection, injuries to arteries, nerves, or blood vessels, infection, wound complications, nonunion, malunion, painful hardware, and need for further surgery. I also discussed medical complications including blood clots, pneumonia, stroke, heart attack, and . Informed consent was obtained and all questions were answered. N.p.o.--plan on surgery this morning Calcium and vitamin D supplementation Physical therapy consult--weight-bear as tolerated after surgery Follow-up with Dr. Boyd in 2 weeks RANJITHs, Rey Black A mid-level provider in my office (nurse practitioner or physician professional nursing assistant) may see this patient on follow-up visits and continue to implement the objectives of this plan including: Starting or adjusting medications, injections , cast application, orthotics, brace application, physical therapy, radiological studies (including x-ray, MRI, CT, ultrasound, bone scan), vascular studies, neurologic studies, specialist consultation, and proceeding with surgical management, as appropriate.
[2018-09-15] MEDS ORDERED: fentaNYL Citrate Inj 100 MCG/2 ML Ampul ONE (12:30)
--- NOTE | 2018-09-15 13:24 | XR ---
EXAM DATE: 09/15/2018 1:20 PM EST AGE/SEX: 87 years / Male INDICATIONS: Right hip, troch nail. CLINICAL DATA: This is the patient's initial encounter. Patient reports that signs and symptoms have been present for 1 day and indicates a pain score of Nonresponsive. MEDICAL/SURGICAL HISTORY: None. None. COMPARISON: C, HIP RIGHT W AP PELVIS 2V, 09/14/2018. . FINDINGS: Multiple coned down views of the right hip were obtained intraoperatively demonstrate an intramedulla ry basilio with locking into cannulated screw transfixing the intertrochanteric fracture. The fracture fr agments are in anatomic alignment. CONCLUSION: Status post open reduction internal fixation. Electronically signed by: Morales Collado MD 09/15/2018 1:23 PM EST
[2018-09-15] MEDS: Calcium/Vitamin D 250/125 MG Tablet PO SCH ×2 (15:55→17:11)
[2018-09-15] MEDS: ceFAZolin 1 GM Premix Inj 1 GM/50 ML FROZ.PIGGY IV.SIG SCH (21:00)
[2018-09-15] MEDS: Sertraline 50 MG Tablet PO SCH (21:00)
[2018-09-16] MEDS: ceFAZolin 1 GM Premix Inj 1 GM/50 ML FROZ.PIGGY IV.SIG SCH ×2 (03:01→12:22)
[2018-09-16 05:57] LABS: Hematocrit 28.6 % (39.0-51.0); Hemoglobin 9.6 gm/dL (13.0-17.0)
[2018-09-16 06:12] LABS: Anion Gap 5 meq/L (5-15); Blood Urea Nitrogen 16 mg/dL (7-18); Calcium 7.9 mg/dL (8.5-10.1); Carbon Dioxide 31.2 meq/L (21.0-32.0); Chloride 104 meq/L (98-107); Glomerular Filtration Rate Greater Than 89 mL/min (>89); Glucose,Random 112 mg/dL (74-106); Potassium 4.4 meq/L (3.5-5.1); Sodium 140 meq/L (136-145)
--- NOTE | 2018-09-16 07:42 | P.PNOP ---
Subjective Interval history: POd 1 s/p IMN right hip doing well. pain controlled. no new complaints. Physical Exam Vital signs: Vital Signs 09/15/18 08:00 09/15/18 08:54 09/15/18 09:55 Temperature 97.2 F L Pulse Rate 80 91 H Respiratory Rate 19 18 Blood Pressure 161/82 H Pulse Oximetry 95 96 95 09/15/18 12:17 09/15/18 12:45 09/15/18 13:00 Temperature 97.6 F Pulse Rate 95 H 94 H 83 Respiratory Rate 22 19 19 Blood Pressure 130/67 160/68 H 143/75 H Pulse Oximetry 95 94 L 94 L 09/15/18 13:15 09/15/18 14:15 09/15/18 14:45 Temperature 98 F Pulse Rate 94 H 99 H 145 H Respiratory Rate 19 19 19 Blood Pressure 152/72 H 150/69 H 145/61 H Pulse Oximetry 92 L 92 L 92 L 09/15/18 15:48 09/15/18 20:00 09/15/18 21:31 Temperature 97.3 F L 97.4 F L Pulse Rate 83 105 H 102 H Respiratory Rate 19 18 18 Blood Pressure 130/80 128/66 Pulse Oximetry 100 94 L 95 09/16/18 00:00 09/16/18 04:00 09/16/18 04:29 Temperature 97.2 F L 97.4 F L Pulse Rate 98 H 106 H Respiratory Rate 18 18 18 Blood Pressure 124/63 143/89 H Pulse Oximetry 97 94 L Intake & Output 09/15/18 09/16/18 09/16/18 18:59 06:59 18:59 Intake Total 150 / 150 100 / 100 Output Total 600 / 600 350 / 350 Balance -450 / -450 -250 / -250 Intake: IV 150 / 150 100 / 100 LR 1000 mL Inj 1,000 ML @ 30 100 / 100 mls/hr IV.SIG .Q24H [facility] Rx#: [id number] Ancef 1 GM Premix Inj 1 gm In 100 / 100 50 ml @ 100 mls/hr IV.SIG Q8H [facility] Rx#:[id number] Ancef 2 GM Premix Inj 2 gm In 50 / 50 50 ml @ 0 mls/hr IV.SIG .STK- [facility] Rx#:[id number] Oral 0 / 0 Output: Urine 350 / 350 Estimated Blood Loss 50 / 50 Urine Amount (Catheter) 550 / 550 Indwelling Urethral Catheter 550 / 550 Other: Date of Last Bowel Movement 09/14/18 Narrative: RLE: dressings clean and dry. intact. NVI - Urinary Catheter Management Indwelling Urethral Catheter Cath placed during this visit: yes Reason for continuing: Other continuation reason Insertion date: 09/14/18 Insertion time: 23:05 Results - Labs CBC & Chem 7: 09/16/18 04:40 09/16/18 04:40 Laboratory Results - last 24 hr 09/16/18 09/16/18 04:40 04:40 Hgb 9.6 L Hct 28.6 L Sodium 140 Potassium 4.4 Chloride 104 Carbon Dioxide 31.2 Anion Gap 5 BUN 16 Creatinine 0.67 Estimated GFR Greater than 89 Random Glucose 112 H Calcium 7.9 L - Imaging Impressions Hip X-Ray 09/15/18 00:00 CONCLUSION: Status post open reduction internal fixation. - Procedures None Assessment and Plan - Assessment and Plan 1) Right Intertroch Hip Fx s/p IMN - POD 1 -WBAT -daily dressing changes POD 2 -CM for rehab placement -DVT prophylaxis -f/u with [facility] or [facility] in 2 weeks
--- NOTE | 2018-09-16 08:41 | P.PN ---
Subjective Interval history: This is a pleasant 87 y/o male with COPD on Oxygen, BPH, Hyperlipidemia, Chronic anemia, History of left hip fracture who was brought in to Emergency room, status post fall with secondary Right hip fracture , has history of left hip fracture, scheduled now for right Hip arthroplasty. 09/15: asking for pain medicine to continue Morphine, at this time will go for surgery. 09/16: Status post Right Hip reduction and intramedullary basilio fixation, no nausea, vomit or diarrhea, not yet cleared by Orthopedic surgery probable discharge in am tomorrow to Rehab Physical Exam Vital signs: Vital Signs 09/15/18 08:54 09/15/18 09:55 09/15/18 12:17 Temperature 97.6 F Pulse Rate 91 H 95 H Respiratory Rate 18 22 Blood Pressure 130/67 Pulse Oximetry 96 95 95 09/15/18 12:45 09/15/18 13:00 09/15/18 13:15 Temperature Pulse Rate 94 H 83 94 H Respiratory Rate 19 19 19 Blood Pressure 160/68 H 143/75 H 152/72 H Pulse Oximetry 94 L 94 L 92 L 09/15/18 14:15 09/15/18 14:45 09/15/18 15:48 Temperature 98 F 97.3 F L Pulse Rate 99 H 145 H 83 Respiratory Rate 19 19 19 Blood Pressure 150/69 H 145/61 H 130/80 Pulse Oximetry 92 L 92 L 100 09/15/18 20:00 09/15/18 21:31 09/16/18 00:00 Temperature 97.4 F L 97.2 F L Pulse Rate 105 H 102 H 98 H Respiratory Rate 18 18 18 Blood Pressure 128/66 124/63 Pulse Oximetry 94 L 95 97 09/16/18 04:00 09/16/18 04:29 Temperature 97.4 F L Pulse Rate 106 H Respiratory Rate 18 18 Blood Pressure 143/89 H Pulse Oximetry 94 L Intake & Output 09/15/18 09/16/18 09/16/18 18:59 06:59 18:59 Intake Total 150 / 150 100 / 100 Output Total 600 / 600 350 / 350 Balance -450 / -450 -250 / -250 Intake: IV 150 / 150 100 / 100 LR 1000 mL Inj 1,000 ML @ 30 100 / 100 mls/hr IV.SIG .Q24H [facility] Rx#: [id number] Ancef 1 GM Premix Inj 1 gm In 100 / 100 50 ml @ 100 mls/hr IV.SIG Q8H [facility] Rx#:[id number] Ancef 2 GM Premix Inj 2 gm In 50 / 50 50 ml @ 0 mls/hr IV.SIG .STK- [facility] Rx#:[id number] Oral 0 / 0 Output: Urine 350 / 350 Estimated Blood Loss 50 / 50 Urine Amount (Catheter) 550 / 550 Indwelling Urethral Catheter 550 / 550 Other: Date of Last Bowel Movement 09/14/18 Narrative: GENERAL: No acute distress. SKIN: Warm and dry. HEAD: Atraumatic. Normocephalic. ENT: No nasal bleeding or discharge. Mucous membranes pink and moist. NECK: Trachea midline. No JVD. CARDIOVASCULAR: Regular rate and rhythm. RESPIRATORY: decreased breath sounds bilateral, no wheezing or crackles. GASTROINTESTINAL: Abdomen soft, non-tender, nondistended. Hepatic and splenic margins not palpable. MUSCULOSKELETAL: Extremities without clubbing, cyanosis, Right hip with dressed surgical wound. NEUROLOGICAL: Awake and alert. No obvious cranial nerve deficits. - Urinary Catheter Management Indwelling Urethral Catheter Cath placed during this visit: yes Reason for continuing: Other continuation reason Insertion date: 09/14/18 Insertion time: 23:05 Results - Labs CBC & Chem 7: 09/16/18 04:40 09/16/18 04:40 Laboratory Results - last 24 hr 09/16/18 09/16/18 04:40 04:40 Hgb 9.6 L Hct 28.6 L Sodium 140 Potassium 4.4 Chloride 104 Carbon Dioxide 31.2 Anion Gap 5 BUN 16 Creatinine 0.67 Estimated GFR Greater than 89 Random Glucose 112 H Calcium 7.9 L - Imaging Impressions Hip X-Ray 09/15/18 00:00 CONCLUSION: Status post open reduction internal fixation. - Procedures - Preoperative Diagnosis (1) Closed intertrochanteric fracture of right femur Date of procedure: 09/15/18 Procedure: Right hip reduction and intra medullary basilio fixation Anesthesia: GETA Surgeon: Yonatan Boyd MD Assessment and Plan - Plan //Acute right hip fracture. With Diagnosis of Right intertrochanteric femur fracture, seen by Orthopedic rare/endangered species specialist and recommended due to instability of the fracture is necessary surgical management for fixation, status post intramedullary basilio fixation Performed 09/15/18. by Doctor Yonatan Boyd. probable discharge to SNF tomorrow. //COPD. Chronic. Continue oxygen via nasal cannula. Continue nebulizations. Monitor. //BPH. Chronic. Continue home medication //Hyperlipidemia. Chronic. Continue home medication. DVT prophylaxis as per Orthopedic Surgery. Code Status: Full code. Discussed Condition With: Patient, Nurse Miss Paredes and her Daughter Miss Tucker. Discharge Planning: Once cleared by orthopedic surgery.
[2018-09-16] MEDS: Finasteride 5 MG Tablet PO SCH (08:43)
[2018-09-16] MEDS: ALPRAZolam 0.25 MG Tablet PO SCH ×3 (08:43→20:15)
[2018-09-16] MEDS: Docusate Sodium 100 MG Capsule PO SCH ×2 (08:44→21:09)
[2018-09-16] MEDS: Calcium/Vitamin D 250/125 MG Tablet PO SCH ×3 (08:44→17:20)
[2018-09-16] MEDS: Moxifloxacin 0.5% Opth Drops 3 ML Bottle EACH EYE SCH ×3 (08:49→17:25)
[2018-09-16] MEDS: Enoxaparin Inj 30 MG/0.3 ML Syringe SQ SCH (12:22)
--- NOTE | 2018-09-16 16:31 | XR ---
EXAM DATE: 09/16/2018 4:25 PM EST AGE/SEX: 87 years / Male INDICATIONS: Right sided chest pain starting today CLINICAL DATA: This is the patient's initial encounter. Patient reports that signs and symptoms have been present for 1 day and indicates a pain score of 8/10. MEDICAL/SURGICAL HISTORY: None. None. COMPARISON: [facility] [place], CHEST 1V SINGLE AP, 09/14/2018. . FINDINGS: The lungs are hyperaerated. There is diffuse interstitial prominence with increased density in both b ases. Consolidating airspace disease appears to be developing in the left base. Heart is within normal limits in size. Calcific catheters chronic disease is seen throughout the aorta. CONCLUSION: COPD with diffuse interstitial prominence which may represent early congestion. Bibasilar airspace disease Electronically signed by: Cristopher Gastelum MD 09/16/2018 4:30 PM EST
[2018-09-16] MEDS: Sod Chloride 0.9% Inj 1,000 ML IV.CONT SCH ×2 (18:50→21:08)
[2018-09-16] MEDS: Sertraline 50 MG Tablet PO SCH (21:09)
--- NOTE | 2018-09-17 06:28 | P.PNOP ---
Subjective Interval history: Resting comfortably with no new complaints Physical Exam Vital signs: Vital Signs 09/16/18 08:00 09/16/18 08:40 09/16/18 12:00 Temperature 97.2 F L 97.2 F L Pulse Rate 96 H 98 H Respiratory Rate 22 18 Blood Pressure 137/61 120/58 L Pulse Oximetry 92 L 95 91 L 09/16/18 16:00 09/16/18 16:17 09/16/18 19:19 Temperature 97.2 F L 97.4 F L Pulse Rate 103 H 89 117 H Respiratory Rate 18 18 18 Blood Pressure 144/70 H 121/61 Pulse Oximetry 95 94 L 09/16/18 20:49 09/16/18 22:59 09/17/18 01:21 Temperature 97.6 F Pulse Rate 88 98 H 90 Respiratory Rate 18 18 20 Blood Pressure 143/67 H Pulse Oximetry 95 90 L 09/17/18 04:29 09/17/18 04:46 Temperature 98.1 F Pulse Rate 90 Respiratory Rate 18 Blood Pressure 143/65 H Pulse Oximetry 90 L 92 L Intake & Output 09/16/18 09/16/18 09/17/18 06:59 18:59 06:59 Intake Total 100 / 100 770 / 770 240 / 240 Output Total 350 / 350 250 / 250 350 / 350 Balance -250 / -250 520 / 520 -110 / -110 Weight 78.2 kg Intake: IV 100 / 100 50 / 50 Ancef 1 GM Premix Inj 1 gm In 100 / 100 50 / 50 50 ml @ 100 mls/hr IV.SIG Q8H [facility] Rx#:[id number] Oral 0 / 0 720 / 720 240 / 240 Output: Urine 350 / 350 350 / 350 Urine Amount (Catheter) 250 / 250 Indwelling Urethral Catheter 250 / 250 Other: Date of Last Bowel Movement 09/14/18 09/14/18 # Bowel Movements 0 Narrative: Patient awake and alert with oxygen mask Right lower extremity: Clean dry dressings intact. Mild swelling. Intact sensation distally with active dorsiflexion plantarflexion of foot - Urinary Catheter Management Indwelling Urethral Catheter Cath placed during this visit: yes, but has since been removed by the nurse Reason for continuing: Not indwelling catheter Insertion date: 09/14/18 Insertion time: 05:20 Removal date: 09/16/18 Removal time: 16:53 Results - Labs CBC & Chem 7: 11/07/18 04:40 09/16/18 04:40 - Imaging Impressions Chest X-Ray 09/16/18 15:54 CONCLUSION: COPD with diffuse interstitial prominence which may represent early congestion. Bibasilar airspace disease - Procedures - Preoperative Diagnosis (1) Closed intertrochanteric fracture of right femur Date of procedure: 09/15/18 Procedure: Right hip reduction and intra medullary basilio fixation Anesthesia: GETA Surgeon: Yonatan Boyd MD Assessment and Plan - Assessment and Plan 1) Right Intertroch Hip Fx s/p IMN - POD 2 -WBAT -daily dressing changes Xeroform and Primapore -CM for rehab placement -orthopedically cleared for discharge -DVT prophylaxis -f/u with [facility] or SAUNDRA in 2 weeks
[2018-09-17] MEDS: ALPRAZolam 0.25 MG Tablet PO SCH ×3 (09:00→17:47)
[2018-09-17] MEDS: Calcium/Vitamin D 250/125 MG Tablet PO SCH ×3 (09:48→17:58)
[2018-09-17] MEDS: Docusate Sodium 100 MG Capsule PO SCH ×2 (09:48→20:24)
[2018-09-17] MEDS: Finasteride 5 MG Tablet PO SCH (09:48)
[2018-09-17] MEDS: Moxifloxacin 0.5% Opth Drops 3 ML Bottle EACH EYE SCH ×3 (09:48→18:05)
[2018-09-17 11:58] LABS: Troponin I 0.02 ng/mL (0.02-0.05)
[2018-09-17] MEDS ORDERED: Acyclovir 800 MG Tablet PO SCH (14:00)
[2018-09-17] MEDS: valACYclovir 500 MG Tab PO SCH ×2 (14:38→21:26)
[2018-09-17] MEDS: Enoxaparin Inj 30 MG/0.3 ML Syringe SQ SCH (14:44)
[2018-09-17] MEDS: Sertraline 50 MG Tablet PO SCH (20:24)
[2018-09-18] MEDS: valACYclovir 500 MG Tab PO SCH ×3 (05:56→21:05)
--- NOTE | 2018-09-18 07:50 | P.PNOP ---
Subjective Interval history: Pain control with no new complaints Physical Exam Vital signs: Vital Signs 09/17/18 08:00 09/17/18 09:10 09/17/18 09:25 Temperature 97.7 F Pulse Rate 90 96 H Respiratory Rate 24 22 Blood Pressure 145/65 H Pulse Oximetry 93 L 93 L 09/17/18 12:00 09/17/18 12:16 09/17/18 15:08 Temperature 97.3 F L Pulse Rate 125 H 110 H 118 H Respiratory Rate 22 21 22 Blood Pressure 147/67 H Pulse Oximetry 93 L 09/17/18 16:00 09/17/18 19:42 09/17/18 20:00 Temperature 98.1 F 97.9 F Pulse Rate 130 H 107 H Respiratory Rate 22 17 Blood Pressure 153/63 H 142/63 H Pulse Oximetry 93 L 94 L 100 09/17/18 20:11 09/17/18 20:12 09/17/18 22:35 Temperature Pulse Rate 110 H Respiratory Rate 20 Blood Pressure Pulse Oximetry 98 94 L 09/17/18 23:00 09/18/18 00:25 09/18/18 05:05 Temperature 98.4 F 98.1 F Pulse Rate 85 101 H 104 H Respiratory Rate 20 20 19 Blood Pressure 127/60 142/65 H Pulse Oximetry 94 L 98 Intake & Output 09/17/18 09/18/18 09/18/18 18:59 06:59 18:59 Intake Total 1040 / 1040 900 / 900 Output Total 1700 / 1700 650 / 650 Balance -660 / -660 250 / 250 Weight 77.2 kg Intake: Oral 1040 / 1040 900 / 900 Output: Urine 0 / 0 Urine Amount (Catheter) 1700 / 1700 650 / 650 Indwelling Urethral Catheter 1700 / 1700 650 / 650 Other: # Voids 900 0 Date of Last Bowel Movement 09/14/18 09/16/18 # Bowel Movements 0 Narrative: Right lower extremity clean dry dressings intact. Knee immobilizer in place. Distally intact sensation with active dorsiflexion and plantarflexion of foot. - Urinary Catheter Management Indwelling Urethral Catheter Cath placed during this visit: yes, but has since been removed by the nurse Reason for continuing: Acute urinary retention Insertion date: 09/17/18 Insertion time: 15:00 Removal date: 09/16/18 Removal time: 16:53 Results - Labs CBC & Chem 7: 09/16/18 04:40 09/16/18 04:40 Laboratory Results - last 24 hr 09/17/18 11:11 Total Creatine Kinase 54 Troponin I 0.02 - Procedures - Preoperative Diagnosis (1) Closed intertrochanteric fracture of right femur Date of procedure: 09/15/18 Procedure: Right hip reduction and intra medullary basilio fixation Anesthesia: GETA Surgeon: Yonatan Boyd MD Assessment and Plan - Assessment and Plan 1) Right Intertroch Hip Fx s/p IMN - POD 3 -WBAT -daily dressing changes Xeroform and Primapore -Remove knee immobilizer -CM for rehab placement -orthopedically cleared for discharge -DVT prophylaxis -f/u with [facility] or SAUNDRA in 2 weeks
[2018-09-18] MEDS: Moxifloxacin 0.5% Opth Drops 3 ML Bottle EACH EYE SCH ×2 (09:00→21:04)
[2018-09-18] MEDS: ALPRAZolam 0.25 MG Tablet PO SCH ×2 (10:26→12:46)
[2018-09-18] MEDS: Finasteride 5 MG Tablet PO SCH (10:26)
[2018-09-18] MEDS: Calcium/Vitamin D 250/125 MG Tablet PO SCH ×3 (10:26→21:04)
[2018-09-18] MEDS: Docusate Sodium 100 MG Capsule PO SCH ×2 (10:27→21:06)
--- NOTE | 2018-09-18 12:28 | XR ---
EXAM DATE: 09/18/2018 12:10 PM EST AGE/SEX: 87 years / Male INDICATIONS: . Congestion with shortness of breath. CLINICAL DATA: This is the patient's subsequent encounter. Patient reports that signs and symptoms h ave been present for 3 days and indicates a pain score of 0/10. MEDICAL/SURGICAL HISTORY: Chronic obstructive pulmonary disease. Congestive heart failure. Non e. [place] [facility] [place]16[place]. . FINDINGS: Lungs are hyperaerated. Scattered interstitial prominence is noted. There is mild interstitial vascul ar prominence in both lower lobes. Significant airspace disease is identified in both lower lobes pos teriorly Heart is at the upper limits of normal in size. Osseous structures appear intact. CONCLUSION: Chronic obstructive pulmonary disease. Generalized interstitial vascular prominence which may represent mild congestion. Bibasilar airspace disease. Electronically signed by: Cristopher Gastelum MD 09/18/2018 12:27 PM EST
[2018-09-18] MEDS: Enoxaparin Inj 30 MG/0.3 ML Syringe SQ SCH (12:44)
[2018-09-18] MEDS: Metoprolol Tartrate 25 MG Tablet PO SCH ×2 (12:59→21:05)
--- NOTE | 2018-09-18 15:41 | ECG ---
Date Performed: 09/17/2018 Time Performed: 13:37:54 PTAGE: 87 years EKG: ATRIAL FIBRILLATION WITH RAPID VENTRICULAR RESPONSE ST DEVIATION AND MODERATE T-WAVE ABNORM ALITY, CONSIDER LATERAL ISCHEMIA Compared to previous tracing, patient is now in atrial fibrillation with rapid ventricular response. Prior EKG showed slow atrial fibrillation ABNORMAL ECG PREVIOUS TRACING : 09/15/2018 06.54 DOCTOR: Rozina Littlejohn Interpretating Date/Time 09/18/2018 15:40:52
--- NOTE | 2018-09-18 16:34 | P.PN ---
Subjective Interval history: Late Entry patient seen on 09/17/18. This is a pleasant 87 y/o male with COPD on Oxygen, BPH, Hyperlipidemia, Chronic anemia, History of left hip fracture who was brought in to Emergency room, status post fall with secondary Right hip fracture , has history of left hip fracture, scheduled now for right Hip arthroplasty. 09/15: asking for pain medicine to continue Morphine, at this time will go for surgery. 09/16: Status post Right Hip reduction and intramedullary basilio fixation, no nausea, vomit or diarrhea, not yet cleared by Orthopedic surgery probable discharge in am tomorrow to Rehab 09/17: Seen in his bedroom, discussed with his Daughter and nurse, he continue to have some shortness of breath given Lasix IV 80 mg and he has Urinary retention placed Torres cath, will need to go to Rehab with Torres in place, on the other hand no nausea, vomit or diarrhea. today cleared by Orthopedic surgery to go to Rehab. Physical Exam Vital signs: Vital Signs 09/17/18 19:42 09/17/18 20:00 09/17/18 20:11 Temperature 97.9 F Pulse Rate 107 H 110 H Respiratory Rate 17 20 Blood Pressure 142/63 H Pulse Oximetry 94 L 100 09/17/18 20:12 09/17/18 22:35 09/17/18 23:00 Temperature Pulse Rate 85 Respiratory Rate 20 Blood Pressure Pulse Oximetry 98 94 L 09/18/18 00:25 09/18/18 05:05 09/18/18 08:00 Temperature 98.4 F 98.1 F 97.5 F L Pulse Rate 101 H 104 H 112 H Respiratory Rate 20 19 20 Blood Pressure 127/60 142/65 H 129/61 Pulse Oximetry 94 L 98 92 L 09/18/18 08:54 09/18/18 12:00 09/18/18 12:25 Temperature 98.4 F Pulse Rate 104 H 114 H 102 H Respiratory Rate 18 20 16 Blood Pressure 141/63 H Pulse Oximetry 94 L 98 Intake & Output 09/17/18 09/18/18 09/18/18 18:59 06:59 18:59 Intake Total 1040 / 1040 900 / 900 Output Total 1700 / 1700 650 / 650 Balance -660 / -660 250 / 250 Weight 77.2 kg Intake: Oral 1040 / 1040 900 / 900 Output: Urine 0 / 0 Urine Amount (Catheter) 1700 / 1700 650 / 650 Indwelling Urethral Catheter 1700 / 1700 650 / 650 Other: # Voids 900 0 Date of Last Bowel Movement 09/14/18 09/16/18 09/16/18 # Bowel Movements 0 Narrative: GENERAL: Moderate respiratory distress. SKIN: Warm and dry. HEAD: Atraumatic. Normocephalic. ENT: No nasal bleeding or discharge. Mucous membranes pink and moist. NECK: Trachea midline. No JVD. CARDIOVASCULAR: Regular rate and rhythm. RESPIRATORY: severe decreased breath sounds bilateral, mild inspiratory crackles bilateral. GASTROINTESTINAL: Abdomen soft, non-tender, nondistended. Hepatic and splenic margins not palpable. MUSCULOSKELETAL: Extremities without clubbing, cyanosis, Right hip with dressed surgical wound. NEUROLOGICAL: Awake and alert. No obvious cranial nerve deficits. . - Urinary Catheter Management Indwelling Urethral Catheter Cath placed during this visit: yes, but has since been removed by the nurse Reason for continuing: Acute urinary retention Insertion date: 09/17/18 Insertion time: 15:00 Removal date: 09/16/18 Removal time: 16:53 Results - Labs CBC & Chem 7: 09/16/18 04:40 09/16/18 04:40 Laboratory Results - last 24 hr 09/18/18 13:16 B-Natriuretic Peptide 201 H - Imaging Impressions Chest X-Ray 09/18/18 00:00 CONCLUSION: Chronic obstructive pulmonary disease. Generalized interstitial vascular prominence which may represent mild congestion. Bibasilar airspace disease. - Procedures - Preoperative Diagnosis (1) Closed intertrochanteric fracture of right femur Date of procedure: 09/15/18 Procedure: Right hip reduction and intra medullary basilio fixation Anesthesia: GETA Surgeon: Yonatan Boyd MD Assessment and Plan - Plan //Acute right hip fracture. With Diagnosis of Right intertrochanteric femur fracture, seen by Orthopedic cardiac specialist and recommended due to instability of the fracture is necessary surgical management for fixation, status post intramedullary basilio fixation Performed 09/15/18. by Doctor Yonatan Boyd. Okay to dischage to SNF today. //End stage COPD. Chronic. Continue oxygen via nasal cannula. Continue nebulizations. Monitor. He uses 5 L/min at home 02/06 at this time worsening condition due to volume overload. //Volume overload Lasix 80 mg once and following. //BPH. Chronic. Continue home medication. //Urinary retention Torres cath placement. //Hyperlipidemia. Chronic. Continue home medication. //Acute on chronic respiratory failure, probable secondary to volume overload on diuretics. DVT prophylaxis as per Orthopedic Surgery. Code Status: Full code. Discussed Condition With: Patient, patient's Daughter and nurse. Discharge Planning: Discharge to SNF once improving her actual acute on chronic respiratory failure
--- NOTE | 2018-09-18 16:38 | P.PN ---
Subjective Interval history: This is a pleasant 87 y/o male with COPD on Oxygen, BPH, Hyperlipidemia, Chronic anemia, History of left hip fracture who was brought in to Emergency room, status post fall with secondary Right hip fracture , has history of left hip fracture, scheduled now for right Hip arthroplasty. 09/15: asking for pain medicine to continue Morphine, at this time will go for surgery. 09/16: Status post Right Hip reduction and intramedullary basilio fixation, no nausea, vomit or diarrhea, not yet cleared by Orthopedic surgery probable discharge in am tomorrow to Rehab 09/17: Seen in his bedroom, discussed with his Daughter and nurse, he continue to have some shortness of breath given Lasix IV 80 mg and he has Urinary retention placed Torres cath, will need to go to Rehab with Torres in place, today cleared by Orthopedic surgery to go to Rehab. 09/18: patient stable improved to baseline with Diuretics also has Torres cath in place, no nausea, vomit or diarrhea had expected Hypoxemia secondary to ambulation, as per waste management specialist recommended for facilities specialist consult. as per [facility] nurse asking for Chest X ray. expected chronic changes. Physical Exam Vital signs: Vital Signs 09/17/18 19:42 09/17/18 20:00 09/17/18 20:11 Temperature 97.9 F Pulse Rate 107 H 110 H Respiratory Rate 17 20 Blood Pressure 142/63 H Pulse Oximetry 94 L 100 09/17/18 20:12 09/17/18 22:35 09/17/18 23:00 Temperature Pulse Rate 85 Respiratory Rate 20 Blood Pressure Pulse Oximetry 98 94 L 09/18/18 00:25 09/18/18 05:05 09/18/18 08:00 Temperature 98.4 F 98.1 F 97.5 F L Pulse Rate 101 H 104 H 112 H Respiratory Rate 20 19 20 Blood Pressure 127/60 142/65 H 129/61 Pulse Oximetry 94 L 98 92 L 09/18/18 08:54 09/18/18 12:00 09/18/18 12:25 Temperature 98.4 F Pulse Rate 104 H 114 H 102 H Respiratory Rate 18 20 16 Blood Pressure 141/63 H Pulse Oximetry 94 L 98 Intake & Output 09/17/18 09/18/18 09/18/18 18:59 06:59 18:59 Intake Total 1040 / 1040 900 / 900 Output Total 1700 / 1700 650 / 650 Balance -660 / -660 250 / 250 Weight 77.2 kg Intake: Oral 1040 / 1040 900 / 900 Output: Urine 0 / 0 Urine Amount (Catheter) 1700 / 1700 650 / 650 Indwelling Urethral Catheter 1700 / 1700 650 / 650 Other: # Voids 900 0 Date of Last Bowel Movement 09/14/18 09/16/18 09/16/18 # Bowel Movements 0 Narrative: GENERAL: Moderate respiratory distress. SKIN: Warm and dry. HEAD: Atraumatic. Normocephalic. ENT: No nasal bleeding or discharge. Mucous membranes pink and moist. NECK: Trachea midline. No JVD. CARDIOVASCULAR: Regular rate and rhythm. RESPIRATORY: severe decreased breath sounds bilateral, no wheezing or crackles. GASTROINTESTINAL: Abdomen soft, non-tender, nondistended. Hepatic and splenic margins not palpable. MUSCULOSKELETAL: Extremities without clubbing, cyanosis, Right hip with dressed surgical wound. NEUROLOGICAL: Awake and alert. No obvious cranial nerve deficits. . - Urinary Catheter Management Indwelling Urethral Catheter Cath placed during this visit: yes, but has since been removed by the nurse Reason for continuing: Acute urinary retention Insertion date: 09/17/18 Insertion time: 15:00 Removal date: 09/16/18 Removal time: 16:53 Results - Labs CBC & Chem 7: 09/16/18 04:40 09/16/18 04:40 Laboratory Results - last 24 hr 09/18/18 13:16 B-Natriuretic Peptide 201 H - Imaging Chest X-Ray 09/18/18 00:00 CONCLUSION: Chronic obstructive pulmonary disease. Generalized interstitial vascular prominence which may represent mild congestion. Bibasilar airspace disease. - Procedures - Preoperative Diagnosis (1) Closed intertrochanteric fracture of right femur Date of procedure: 09/15/18 Procedure: Right hip reduction and intra medullary basilio fixation Anesthesia: GETA Surgeon: Yonatan Boyd MD Assessment and Plan - Plan //Acute right hip fracture. With Diagnosis of Right intertrochanteric femur fracture, seen by Orthopedic drug regulatory affairs specialist and recommended due to instability of the fracture is necessary surgical management for fixation, status post intramedullary basilio fixation Performed 09/15/18. by Doctor Yonatan Boyd. Okay to dischage to SNF today. //End stage COPD. Chronic. Continue oxygen via nasal cannula. Continue nebulizations. Monitor. He uses 5 L/min at home 02/06 at this time worsening condition due to volume overload. Improved to baseline today, and had Chest X ray AP and Lateral chronic changes. //Volume overload Lasix 80 mg once and following. improved to baseline //BPH. Chronic. Continue home medication. //Urinary retention Torres cath placement. //Hyperlipidemia. Chronic. Continue home medication. //Acute on chronic respiratory failure, probable secondary to volume overload on diuretics. to baseline as per waste specialist Doctor cotton asked for facilities specialist. DVT prophylaxis as per Orthopedic Surgery. Code Status: Full code. Discussed Condition With: Patient, His Daughter, Nurse, [facility] nurse. Discharge Planning: Discharge to [facility] once seen by facilities specialist.
[2018-09-18] MEDS: MethylPREDNISolone Sod Succinate Inj 40 MG/ML Vial IV.PUSH SCH (21:05)
[2018-09-18] MEDS: Sertraline 50 MG Tablet PO SCH (21:05)
[2018-09-19] MEDS: MethylPREDNISolone Sod Succinate Inj 40 MG/ML Vial IV.PUSH SCH ×3 (05:49→23:12)
[2018-09-19] MEDS: valACYclovir 500 MG Tab PO SCH ×3 (05:49→23:12)
[2018-09-19] MEDS: Metoprolol Tartrate 25 MG Tablet PO SCH ×2 (09:04→20:20)
[2018-09-19] MEDS: Docusate Sodium 100 MG Capsule PO SCH ×2 (09:05→20:20)
[2018-09-19] MEDS: Calcium/Vitamin D 250/125 MG Tablet PO SCH ×3 (09:05→17:11)
[2018-09-19] MEDS: Finasteride 5 MG Tablet PO SCH (09:06)
[2018-09-19] MEDS: Moxifloxacin 0.5% Opth Drops 3 ML Bottle EACH EYE SCH ×3 (09:07→17:12)
--- NOTE | 2018-09-19 09:26 | P.PN ---
Subjective Interval history: This is a pleasant 87 y/o male with COPD on Oxygen, BPH, Hyperlipidemia, Chronic anemia, History of left hip fracture who was brought in to Emergency room, status post fall with secondary Right hip fracture , has history of left hip fracture, scheduled now for right Hip arthroplasty. 09/15: asking for pain medicine to continue Morphine, at this time will go for surgery. 09/16: Status post Right Hip reduction and intramedullary basilio fixation, no nausea, vomit or diarrhea, not yet cleared by Orthopedic surgery probable discharge in am tomorrow to Rehab 09/17: Seen in his bedroom, discussed with his Daughter and nurse, he continue to have some shortness of breath given Lasix IV 80 mg and he has Urinary retention placed Torres cath, will need to go to Rehab with Torres in place, today cleared by Orthopedic surgery to go to Rehab. 09/18: patient stable improved to baseline with Diuretics also has Torres cath in place, no nausea, vomit or diarrhea had expected Hypoxemia secondary to ambulation, as per shipping and receiving specialist recommended for firefighting equipment specialist consult. as per [facility] nurse asking for Chest X ray. expected chronic changes. 09/19: Seen in the presence of his daughter awaiting final by firefighting equipment specialist for transfer to [facility]. No nausea, vomit or diarrhea. Physical Exam Vital signs: Vital Signs 09/18/18 12:00 09/18/18 12:25 09/18/18 16:00 Temperature 98.4 F 97.7 F Pulse Rate 114 H 102 H 100 H Respiratory Rate 20 16 20 Blood Pressure 141/63 H 154/71 H Pulse Oximetry 98 100 09/18/18 16:52 09/18/18 20:00 09/18/18 21:00 Temperature 98.6 F Pulse Rate 105 H 115 H Respiratory Rate 20 22 Blood Pressure 132/74 Pulse Oximetry 97 95 09/18/18 22:03 09/19/18 00:00 09/19/18 03:25 Temperature 98.8 F 97.1 F L Pulse Rate 103 H 103 H 94 H Respiratory Rate 18 21 22 Blood Pressure 127/60 135/67 Pulse Oximetry 95 99 09/19/18 07:55 09/19/18 08:50 Temperature 97.4 F L Pulse Rate 90 99 H Respiratory Rate 18 19 Blood Pressure 140/72 Pulse Oximetry 96 99 Intake & Output 09/18/18 09/19/1818 18:59 06:59 18:59 Intake Total 240 / 240 580 / 580 Output Total 375 / 375 525 / 525 Balance -135 / -135 55 / 55 Weight 75.2 kg Intake: IV 100 / 100 Rocephin Inj 1,000 MG In NS Inj 100 / 100 100 ML @ 200 mls/hr IV.SIG Q24H [facility] Rx#:[id number] Oral 240 / 240 480 / 480 Output: Urine 375 / 375 Urine Amount (Catheter) 525 / 525 Indwelling Urethral Catheter 525 / 525 Other: Date of Last Bowel Movement 09/16/18 09/16/18 # Bowel Movements 0 Narrative: GENERAL: No acute distress. SKIN: Warm and dry. HEAD: Atraumatic. Normocephalic. ENT: No nasal bleeding or discharge. Mucous membranes pink and moist. NECK: Trachea midline. No JVD. CARDIOVASCULAR: Regular rate and rhythm. RESPIRATORY: severe decreased breath sounds bilateral, no wheezing or crackles. GASTROINTESTINAL: Abdomen soft, non-tender, nondistended. Hepatic and splenic margins not palpable. MUSCULOSKELETAL: Extremities without clubbing, cyanosis, Right hip with dressed surgical wound. NEUROLOGICAL: Awake and alert. No obvious cranial nerve deficits. . - Urinary Catheter Management Indwelling Urethral Catheter Cath placed during this visit: yes, but has since been removed by the nurse Reason for continuing: Acute urinary retention Insertion date: 09/17/18 Insertion time: 15:00 Removal date: 09/16/18 Removal time: 16:53 Results - Labs CBC & Chem 7: 09/16/18 04:40 09/16/18 04:40 Laboratory Results - last 24 hr 09/18/18 13:16 B-Natriuretic Peptide 201 H - Imaging Impressions Chest X-Ray 09/18/18 00:00 CONCLUSION: Chronic obstructive pulmonary disease. Generalized interstitial vascular prominence which may represent mild congestion. Bibasilar airspace disease. - Procedures - Preoperative Diagnosis (1) Closed intertrochanteric fracture of right femur Date of procedure: 09/15/18 Procedure: Right hip reduction and intra medullary basilio fixation Anesthesia: GETA Surgeon: Yonatan Boyd MD Assessment and Plan - Plan //Acute right hip fracture. With Diagnosis of Right intertrochanteric femur fracture, seen by Orthopedic appraisal specialist and recommended due to instability of the fracture is necessary surgical management for fixation, status post intramedullary basilio fixation Performed 09/15/18. by Doctor Yonatan Boyd. Okay to discharge to SNF, awaiting firefighting equipment specialist for transfer to [facility] probable tomorrow. //End stage COPD. Chronic. Continue oxygen via nasal cannula. Continue nebulizations. Monitor. He uses 5 L/min at home 02/06 at this time worsening condition due to volume overload. Improved to baseline today, and had Chest X ray AP and Lateral chronic changes. //Volume overload Lasix 80 mg once and following. improved to baseline //BPH. Chronic. Continue home medication. //Urinary retention Torres cath placement. //Hyperlipidemia. Chronic. Continue home medication. //Acute on chronic respiratory failure, probable secondary to volume overload on diuretics. to baseline as per mgmt specialist Doctor cotton asked for firefighting equipment specialist. DVT prophylaxis as per Orthopedic Surgery. Code Status: Full code. Discussed Condition With: Patient and nurse and Daughter. Discharge Planning: Discharge to [facility] once seen by firefighting equipment specialist.
[2018-09-19] MEDS: Enoxaparin Inj 30 MG/0.3 ML Syringe SQ SCH (11:52)
--- NOTE | 2018-09-19 19:45 | P.PN ---
Subjective Interval history: He is feeling better today. On O2 2 l. C/O Pain Right hip but able to move it better. Physical Exam Vital signs: Vital Signs 09/18/18 20:00 09/18/18 21:00 09/18/18 22:03 Temperature 98.6 F Pulse Rate 115 H 103 H Respiratory Rate 22 18 Blood Pressure 132/74 Pulse Oximetry 97 95 09/19/18 00:00 09/19/18 03:25 09/19/18 07:55 Temperature 98.8 F 97.1 F L Pulse Rate 103 H 94 H 90 Respiratory Rate 21 22 18 Blood Pressure 127/60 135/67 Pulse Oximetry 95 99 96 09/19/18 08:50 09/19/18 12:00 09/19/18 12:28 Temperature 97.4 F L 97.7 F Pulse Rate 99 H 120 H 93 H Respiratory Rate 19 19 18 Blood Pressure 140/72 129/60 Pulse Oximetry 99 98 09/19/18 15:20 09/19/18 15:58 Temperature 97.8 F Pulse Rate 85 90 Respiratory Rate 19 18 Blood Pressure 136/62 Pulse Oximetry 96 Intake & Output 09/19/18 09/19/18 09/20/18 06:59 18:59 06:59 Intake Total 580 / 580 550 / 550 Output Total 525 / 525 800 / 800 Balance 55 / 55 -250 / -250 Weight 75.2 kg Intake: IV 100 / 100 Rocephin Inj 1,000 MG In NS Inj 100 / 100 100 ML @ 200 mls/hr IV.SIG Q24H [facility] Rx#:[id number] Oral 480 / 480 550 / 550 Output: Urine Amount (Catheter) 525 / 525 800 / 800 Indwelling Urethral Catheter 525 / 525 800 / 800 Other: Date of Last Bowel Movement 09/16/18 09/19/18 Narrative: GENERAL: Elderly W/M in No acute distress. SKIN: Warm and dry. HEAD: Atraumatic. Normocephalic. ENT: No nasal bleeding or discharge. Mucous membranes pink and moist. NECK: Trachea midline. No JVD. CARDIOVASCULAR: Regular rate and rhythm. RESPIRATORY: decreased breath sounds bilaterally, and prolonged expirations. Occ wheezing , no crackles. GASTROINTESTINAL: Abdomen soft, non-tender, nondistended. Hepatic and splenic margins not palpable. MUSCULOSKELETAL: Extremities without clubbing, cyanosis, Right hip with dressed surgical wound. NEUROLOGICAL: Awake and alert. No obvious cranial nerve deficits. . - Urinary Catheter Management Indwelling Urethral Catheter Cath placed during this visit: yes, but has since been removed by the nurse Reason for continuing: Acute urinary retention Insertion date: 09/17/18 Insertion time: 15:00 Removal date: 09/16/18 Removal time: 16:53 Results - Labs CBC & Chem 7: 09/16/18 04:40 09/16/18 04:40 Microbiology 09/18/18 21:27 Sputum - Expectorated Sputum Gram Stain - Final 09/18/18 21:27 Sputum - Expectorated Sputum Sputum Culture - Preliminary Immature growth - reincubate - Procedures - Preoperative Diagnosis (1) Closed intertrochanteric fracture of right femur Date of procedure: 09/15/18 Procedure: Right hip reduction and intra medullary basilio fixation Anesthesia: GETA Surgeon: Yonatan Boyd MD Assessment and Plan - Assessment (1) Status post open reduction and internal fixation (ORIF) of fracture with nonunion Code(s): Z98.890 - Other specified postprocedural states Status: Acute (2) Closed intertrochanteric fracture of right femur Code(s): S72.141A - Displaced intertrochanteric fracture of right femur, initial encounter for closed fracture Status: Acute (3) COPD (chronic obstructive pulmonary disease) Code(s): J44.9 - Chronic obstructive pulmonary disease, unspecified Status: Acute (4) COPD (chronic obstructive pulmonary disease) with acute bronchitis Code(s): J44.0 - Chronic obstructive pulmonary disease with acute lower respiratory infection; J20.9 - Acute bronchitis, unspecified Status: Acute (5) Arthritis Code(s): M19.90 - Unspecified osteoarthritis, unspecified site Status: Acute - Plan 1. Duoneb nebs qid. 2. O2 2 L N/C 3. Symbicort 160/4.5 mcg, 2puffs BID 4. Continue Rocephin 1 G IV daily 5. Solumedrol 40 Mg IV BID X 2 days 6. Up with help 7. Lovenox 30 Mg S/Q daily
[2018-09-19] MEDS: Sertraline 50 MG Tablet PO SCH (20:20)
--- NOTE | 2018-09-19 20:23 | MB ---
cc: Lavinia Sethi MD DATE: 09/18/2018 REASON FOR CONSULTATION: COPD and hypoxia. HISTORY OF PRESENT ILLNESS: This is an 87-year-old white male with a past history of COPD on home oxygen and history of hyperlipidemia and anemia, past history for a left hip fracture, was admitted through the emergency room with acute right hip fracture. The patient apparently had severe pain in his hip and he got out of bed and had fallen to the floor, but had quite severe pain along the hip and was unable to move it and thus was brought to the emergency room and admitted. He then was evaluated by orthopedics and underwent ORIF of the right hip fracture and postoperatively has been on oxygen via nasal cannula at 3-4 liters. The patient also has a longstanding history of smoking and thus he has been treated for COPD and has been on an albuterol inhaler as well as an inhaled steroid. Presently he has some cough. Denies any wheezing and has mild shortness of breath at rest. His past history has included history for COPD and previous left hip fracture requiring ORIF and he has had some skin cancers removed and he has no history of diabetes or hypertension. HABITS: The patient smoked 1-2 packs per day for over 60 years and quit recently. Alcohol use, none recently. FAMILY HISTORY: Significant for strokes and hypertension in his parents. REVIEW OF SYSTEMS: The patient is a poor historian, is unable to answer any questions well. Does complain of some pain along the right hip area and difficulty in moving his hip. He has some epigastric distress and reflux and urinary frequency. He has no headaches or blackouts. Does have joint pains of his extremities and some anxiety. ALLERGIES: NO DRUG ALLERGIES WERE LISTED. MEDICATIONS: List from home includes: 1. Aspirin 1 daily. 2. Atorvastatin 10 mg a day. 3. Finasteride 5 mg daily. 4. Nebulized albuterol and Atrovent t.i.d. 5. Sertraline 50 mg at bedtime. 6. Tamsulosin 0.4 mg b.i.d. 7. Xanax 0.5 mg t.i.d. PHYSICAL EXAMINATION: GENERAL: This averagely built, elderly man is pale and awake and responds to questions. VITAL SIGNS: Blood pressure was 170/80, pulse is 84, respirations 20, temperature 97.5. HEENT: Head is normocephalic. Pupils were reactive. Arcus senilis was seen. Tongue was moist. Throat was mildly injected. Ears, no inflammation. NECK: Supple, no bruits or thyroid enlargement or lymphadenopathy. CHEST: Distant breath sounds with an increased AP diameter and few wheezes anteriorly. HEART: Sounds were regular, S1 and S2 with no murmur. No S3. ABDOMEN: Soft and benign. No mass. No organomegaly or tenderness. Bowel sounds are active. EXTREMITIES: Right hip with dressing. Movements to the hip are restricted, some tenderness along the skin laterally and the left leg is mobile with no significant edema. No calf tenderness. The patient has no gross motor deficits. Cranial nerves grossly intact. SKIN: No lesions noted. IMPRESSION: 1. 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 2. Status post open reduction and internal fixation of right hip fracture. 3. Degenerative arthritis. 4. Chronic obstructive pulmonary disease with acute exacerbation. PLAN: The patient has been placed on O2 at 2.5 liters nasal cannula. We will place him on Rocephin 1 gram IV daily for exacerbation of bronchitis. Nebulized DuoNeb solution will be added q.i.d. and p.r.n. also and Symbicort 160/4.5 mcg 1 puff twice a day and Solu-Medrol 40 mg every 8 hours for 2 days. Pulmonary function study to be done when he is stable and I will follow the case with you, Dr. Cabral. Thank you for this consultation. Lavinia Sethi MD VJD/ct , 07:24 PM , 07:37 PM
[2018-09-19] MEDS: Budesonide-Formoterol 160/4.5 MCG 6 GM Inhaler INH SCH (20:33)
[2018-09-20] MEDS: valACYclovir 500 MG Tab PO SCH ×2 (05:45→13:50)
[2018-09-20] MEDS: MethylPREDNISolone Sod Succinate Inj 40 MG/ML Vial IV.PUSH SCH (05:45)
[2018-09-20] MEDS: Finasteride 5 MG Tablet PO SCH (08:50)
[2018-09-20] MEDS: Docusate Sodium 100 MG Capsule PO SCH (08:51)
[2018-09-20] MEDS: Calcium/Vitamin D 250/125 MG Tablet PO SCH ×2 (08:52→13:37)
[2018-09-20] MEDS: Metoprolol Tartrate 25 MG Tablet PO SCH (08:53)
[2018-09-20] MEDS: Moxifloxacin 0.5% Opth Drops 3 ML Bottle EACH EYE SCH ×2 (09:00→13:37)
--- NOTE | 2018-09-20 10:51 | P.PNIM ---
Subjective Interval history: Patient seen and examined this morning. Afebrile vital signs stable. Patient' s been approved for rehab at the inpatient rehab. At this time we are awaiting clearance by pulmonology for discharge to rehab. Patient reports that he is breathing okay and is not having any shortness of breath or chest pain. He is looking forward to going and doing some physical therapy on a more consistent basis so he can get stronger. Physical Exam Vital signs: Vital Signs 09/19/18 12:00 09/19/18 12:28 09/19/18 15:20 Temperature 97.7 F 97.8 F Pulse Rate 120 H 93 H 85 Respiratory Rate 19 18 19 Blood Pressure 129/60 136/62 Pulse Oximetry 98 96 09/19/18 15:58 09/19/18 20:00 09/19/18 20:13 Temperature 97.8 F Pulse Rate 90 99 H 92 H Respiratory Rate 18 21 18 Blood Pressure 133/63 Pulse Oximetry 97 97 09/19/18 23:05 09/19/18 23:47 09/20/18 01:30 Temperature 98 F Pulse Rate 96 H 95 H Respiratory Rate 16 21 18 Blood Pressure 149/69 H Pulse Oximetry 98 09/20/18 03:23 09/20/18 04:20 09/20/18 08:00 Temperature 97.4 F L 97.7 F Pulse Rate 100 H 102 H 89 Respiratory Rate 16 20 20 Blood Pressure 145/72 H 153/91 H Pulse Oximetry 96 93 L 09/20/18 08:14 Temperature Pulse Rate 69 Respiratory Rate 17 Blood Pressure Pulse Oximetry 92 L Intake & Output 09/19/18 09/20/18 09/20/18 18:59 06:59 18:59 Intake Total 550 / 550 1300 / 1300 Output Total 800 / 800 1300 / 1300 Balance -250 / -250 0 / 0 Weight 78.1 kg Intake: IV 100 / 100 Rocephin Inj 1,000 MG In NS Inj 100 / 100 100 ML @ 200 mls/hr IV.SIG Q24H [facility] Rx#:[id number] Oral 550 / 550 1200 / 1200 Output: Urine 1300 / 1300 Urine Amount (Catheter) 800 / 800 Indwelling Urethral Catheter 800 / 800 Other: Date of Last Bowel Movement 09/19/18 09/19/18 09/19/18 Narrative: GENERAL: Elderly Male in No acute distress. SKIN: Warm and dry. HEAD: Atraumatic. Normocephalic. ENT: No nasal bleeding or discharge. Mucous membranes pink and moist. NECK: Trachea midline. No JVD. CARDIOVASCULAR: Regular rate and rhythm. RESPIRATORY: Decreased breath sounds in the lower lobes, no noticeable wheezing on his exam GASTROINTESTINAL: Abdomen soft, non-tender, nondistended. Hepatic and splenic margins not palpable. MUSCULOSKELETAL: Extremities without clubbing, cyanosis, Right hip with dressed surgical wound. NEUROLOGICAL: Awake and alert. No obvious cranial nerve deficits. . - Urinary Catheter Management Indwelling Urethral Catheter Cath placed during this visit: yes, but has since been removed by the nurse Reason for continuing: Acute urinary retention Insertion date: 09/17/18 Insertion time: 15:00 Removal date: 09/16/18 Removal time: 16:53 Results - Labs CBC & Chem 7: 09/16/18 04:40 09/16/18 04:40 Microbiology 09/18/18 21:27 Sputum - Expectorated Sputum Gram Stain - Final 09/18/18 21:27 Sputum - Expectorated Sputum Sputum Culture - Preliminary Immature growth - reincubate - Procedures - Preoperative Diagnosis (1) Closed intertrochanteric fracture of right femur Date of procedure: 09/15/18 Procedure: Right hip reduction and intra medullary basilio fixation Anesthesia: GETA Surgeon: Yonatan Boyd MD Assessment and Plan - Assessment (1) Closed intertrochanteric fracture of right femur Code(s): S72.141A - Displaced intertrochanteric fracture of right femur, initial encounter for closed fracture Status: Acute (2) COPD (chronic obstructive pulmonary disease) with acute bronchitis Code(s): J44.0 - Chronic obstructive pulmonary disease with acute lower respiratory infection; J20.9 - Acute bronchitis, unspecified Status: Acute - Plan //Acute right hip fracture. With Diagnosis of Right intertrochanteric femur fracture, seen by Orthopedic performance improvement specialist and recommended due to instability of the fracture is necessary surgical management for fixation, status post intramedullary basilio fixation Performed 09/15/18. by Doctor Yonatan Boyd. Okay to discharge to SNF, awaiting manipulative therapy specialist for transfer to [facility] . //End stage COPD. Chronic. Continue oxygen via nasal cannula. Continue nebulizations. Monitor. He uses 5 L/min at home 02/06 at this time worsening condition due to volume overload. Improved to baseline today, and had Chest X ray AP and Lateral chronic changes. //Volume overload Lasix 80 mg once and following. improved to baseline //BPH. Chronic. Continue home medication. //Urinary retention Torres cath placement. //Hyperlipidemia. Chronic. Continue home medication. //Acute on chronic respiratory failure, probable secondary to volume overload on diuretics. to baseline as per rehab specialist Doctor cotton asked for manipulative therapy specialist. DVT prophylaxis as per Orthopedic Surgery. Code Status: Full code Discussed Condition With: anti tank missileman Planning: Anticipate discharge hopefully today inpatient rehab pending pulmonology clearance
[2018-09-20] MEDS: Budesonide-Formoterol 160/4.5 MCG 6 GM Inhaler INH SCH (11:27)
--- NOTE | 2018-09-20 12:01 | P.DS ---
Date of admission: 09/14/18 22:02 Primary care physician: UNKNOWN Attending physician on discharge: Austin Diaz Anticipated date of discharge: 09/20/18 Brief History from admission: 87-year-old male with a history of COPD on oxygen, BPH, hyperlipidemia, chronic anemia, history of left hip fracture who presents the evening of 09/14 with with acute right hip fracture seen on x-ray. Patient says that he stood up from his bed, experienced severe pain in his right hip and fell to the floor. Denies any head trauma or loss of consciousness. He subsequently has severe constant sharp nonradiating pain right hip worse with movement. Says he otherwise is feeling all right. Denies any chest pain or change in shortness of breath from baseline. Patient denies any history of chest pain with exertion. Patient update on day of discharge: Patient was stable at time of discharge. Doing well and breathing with the incentive spirometer and oxygen. Cleared for discharge per pulmonology and accepted to [facility] re[facility] DS: Diagnosis - Discharge Diagnosis (1) Closed intertrochanteric fracture of right femur Status: Acute (2) COPD (chronic obstructive pulmonary disease) with acute bronchitis Status: Acute DS: Medications - Discharge Medications Prescriptions: alprazolam 0.5 mg PO TID PRN #10 tab PRN Reason: Anxiety hydrocodone-acetaminophen [[place]] 1 tab PO Q4-6H PRN #42 tab PRN Reason: Acute Pain rivaroxaban [Xarelto] 10 mg PO DAILY #14 tab DS: Summary Hospital Course: Patient obtained a fracture of his hip. He requires surgical management. Was cleared for physical therapy after surgery. However during his hospitalization he had an acute exacerbation of his COPD. He quickly recovered and was cleared for discharge by both the medical team and pulmonary team. He is accepted to inpatient rehab where he will continue to get physical therapy and antibiotics. - Time Spent with Patient Total time spent providing and/or coordinating discharge services: Less than 30 minutes - Quality: VTE Deep Vein Thrombosis/Pulmonary Embolism Present on Admission: No Exam Vital signs: Vital Signs 09/19/18 12:28 09/19/18 15:20 09/19/18 15:58 Temperature 97.8 F Pulse Rate 93 H 85 90 Respiratory Rate 18 19 18 Blood Pressure 136/62 Pulse Oximetry 96 09/19/18 20:00 09/19/18 20:13 09/19/18 23:05 Temperature 97.8 F Pulse Rate 99 H 92 H 96 H Respiratory Rate 21 18 16 Blood Pressure 133/63 Pulse Oximetry 97 97 09/19/18 23:47 09/20/18 01:30 09/20/18 03:23 Temperature 98 F Pulse Rate 95 H 100 H Respiratory Rate 21 18 16 Blood Pressure 149/69 H Pulse Oximetry 98 09/20/18 04:20 09/20/18 08:00 09/20/18 08:14 Temperature 97.4 F L 97.7 F Pulse Rate 102 H 89 69 Respiratory Rate 20 20 17 Blood Pressure 145/72 H 153/91 H Pulse Oximetry 96 93 L 92 L 09/20/18 11:41 Temperature Pulse Rate 70 Respiratory Rate 17 Blood Pressure Pulse Oximetry Intake & Output 09/19/18 09/20/18 09/20/18 18:59 06:59 18:59 Intake Total 550 / 550 1300 / 1300 Output Total 800 / 800 1300 / 1300 Balance -250 / -250 0 / 0 Weight 78.1 kg Intake: IV 100 / 100 Rocephin Inj 1,000 MG In NS Inj 100 / 100 100 ML @ 200 mls/hr IV.SIG Q24H [facility] Rx#:[id number] Oral 550 / 550 1200 / 1200 Output: Urine 1300 / 1300 Urine Amount (Catheter) 800 / 800 Indwelling Urethral Catheter 800 / 800 Other: Date of Last Bowel Movement 09/19/18 09/19/18 09/19/18 Narrative: GENERAL: Elderly Male in No acute distress. SKIN: Warm and dry. HEAD: Atraumatic. Normocephalic. ENT: No nasal bleeding or discharge. Mucous membranes pink and moist. NECK: Trachea midline. No JVD. CARDIOVASCULAR: Regular rate and rhythm. RESPIRATORY: Decreased breath sounds in the lower lobes, no noticeable wheezing on his exam GASTROINTESTINAL: Abdomen soft, non-tender, nondistended. Hepatic and splenic margins not palpable. MUSCULOSKELETAL: Extremities without clubbing, cyanosis, Right hip with dressed surgical wound. NEUROLOGICAL: Awake and alert. No obvious cranial nerve deficits. . Results Procedures completed during hospitalization: - Preoperative Diagnosis (1) Closed intertrochanteric fracture of right femur Date of procedure: 09/15/18 Procedure: Right hip reduction and intra medullary basilio fixation Anesthesia: GETA Surgeon: Yonatan Obregon MD Labs on day of discharge: Preliminary micro results at discharge 09/18/18 21:27 Sputum Culture - Preliminary Sputum - Expectorated Sputum Immature growth - reincubate - Impressions ITS Impressions Hip X-Ray 09/15/18 00:00 CONCLUSION: Status post open reduction internal fixation. Chest X-Ray 09/18/18 00:00 CONCLUSION: Chronic obstructive pulmonary disease. Generalized interstitial vascular prominence which may represent mild congestion. Bibasilar airspace disease. Discharge Plan - Discharge Disposition Patient Disposition: Discharge to SNF - Discharge Condition Condition: Stable - Discharge Order Discharge Orders: Discharge Order (Routine); Ordered 09/18/18 Ordered By: Sean Cabral Pulmonology Clear for Discharge (Routine); Ordered 09/20/18 Ordered By: Panfilo Oates - Discharge Details Anticipated Discharge Date: 09/18/18 Discharge Comment: Follow with Orthopedic surgery Doctor Yonatan Obregon in two weeks. - Physicians Team Primary Care Provider: UNKNOWN, Attending Provider: Austin Diaz Other Providers: Yonatan Obregon MD ; [facility],Agency ; [facility],Agency ; Panfilo Oates MD
[2018-09-20] MEDS: Enoxaparin Inj 30 MG/0.3 ML Syringe SQ SCH (12:30)
[2018-09-20 13:09] VITALS: BP 125/58; PULSE 86; RESP 16; TEMP 97.3; O2SAT 99
[2018-09-21] MEDS ORDERED: Metoprolol Tartrate 25 MG Tablet PO SCH (09:00)
== END 2018-09-20 13:51 ==
LOC: NEPC 20:58 → NEDA 22:02 → N06 09-15 00:40
PROVIDERS: ADMIT Hospitalist; ATTEND Hospitalist
PROC: ORIFHIP (2018-09-15 11:03)